=== PATIENT | female | born 1955 | race Caucasian/White ===

== ENCOUNTER 2018-11-15 09:18 | Emergency (ER) | payer BC ==
[2018-11-15] MEDS ORDERED: Diltiazem 50 MG/10 ML SDV IVPUSH ONE (09:48)
[2018-11-15] MEDS ORDERED: Sodium Chloride 0.9% 10 ML Syringe FLUSH PRN (09:49)
--- NOTE | 2018-11-15 09:50 | EDM.PDOC ---
ED HPI GENERAL MEDICAL PROBLEM - General Chief Complaint: Cardiovascular Problem Stated Complaint: HEART ISSUES Time Seen by Provider: 11/15/18 09:47 Source of Information: Reports: Patient, Family, RN, RN Notes Reviewed History Limitations: Reports: No Limitations - History of Present Illness INITIAL COMMENTS - FREE TEXT/NARRATIVE: Patient presents to the ED at [facility] for the evaluation of tachycardia and palpitations. Patient states her symptoms started while she was on the treadmill this AM. Patient denies any chest pain. No SOB or cough. Patient states she feel some heartburn. No N/V/D. Patient denies any focal neurological deficits. No LOC. Patient denies any dizziness or feeling lightheaded. Patient does have a history of AFib with RVR from last spring. Onset: Today, Sudden Onset Date: 11/15/18 - Related Data Allergies Allergy/AdvReac Type Severity Reaction Status Date / Time atorvastatin calcium Allergy Cannot Verified 11/15/18 09:47 [From Lipitor] Remember rosuvastatin calcium Allergy Cannot Verified 11/15/18 09:47 [From Crestor] Remember Sulfa (Sulfonamide Allergy Facial Verified 11/15/18 09:47 Antibiotics) Swelling codeine AdvReac Nausea and Verified 11/15/18 09:47 Vomiting tussenel Allergy Cannot Uncoded 11/15/18 09:47 Remember Home Meds: Home Meds Aspirin [Dino Chewable] 81 mg PO DAILY 12/01/13 [History] Multivitamin [Multivitamins] 1 each PO DAILY 12/01/13 [History] Xpdph-3-Pgwr Ethyl Esters [Lovaza] 2 gm PO DAILY 12/01/13 [History] Omeprazole 1 cap PO BID 12/01/13 [History] buPROPion [Wellbutrin XL] 150 mg PO DAILY 12/01/13 [History] Calcium Carb & Citrate/Vit D3 [Calcium + Vitamin D3 Caplet] 1 each PO DAILY [History] Cranberry Extract/Vit C [Azo Cranberry Softgel] 1 cap PO DAILY 02/07/16 [History ] Fenofibrate Nanocrystallized [Fenofibrate] 145 mg PO DAILY 02/07/16 [History] Hyoscyamine [Levsin] 1 tab PO TID PRN 02/07/16 [History] L.acidoph,Paracasei, B.lactis [Probiotic] 1 cap PO DAILY 02/07/16 [History] Ursodiol 2 tab PO BID 02/07/16 [History] Ascorbate Calcium [Vitamin C] 1 tab PO DAILY 02/12/16 [History] Milk Thistle 1 tab PO DAILY 02/12/16 [History] Turmeric Root Extract [Turmeric] 1 tab PO DAILY 02/12/16 [History] Zinc 1 tab PO DAILY 02/12/16 [History] Past Medical History Cardiovascular History: Reports: High Cholesterol Respiratory History: Reports: None Gastrointestinal History: Reports: Cholelithiasis, Diverticulosis, GERD, Other ( See Below) Other Gastrointestinal History: Epigastric pain Genitourinary History: Reports: None, Renal Calculus EMS DRIVER History: Reports: Other (See Below) Other EMS DRIVER History: Menopause Musculoskeletal History: Reports: Back Pain, Chronic, Osteoarthritis, Other ( See Below) Other Musculoskeletal History: Chronic shoulder bursitis Neurological History: Reports: None Psychiatric History: Reports: Other (See Below) Other Psychiatric History: Adjustment disorder Endocrine/Metabolic History: Reports: Other (See Below) Other Endocrine/Metabolic History: Hypercalcemia Hematologic History: Reports: None Immunologic History: Reports: None Oncologic (Cancer) History: Reports: None Dermatologic History: Reports: Other (See Below) Other Dermatologic History: Acne - Past Surgical History HEENT Surgical History: Reports: Naso-Sinus Surgery, Tonsillectomy Musculoskeletal Surgical History: Reports: Arthroscopic Procedure ED ROS GENERAL - Review of Systems Review Of Systems: See Below Constitutional: Denies: Fever, Chills, Weakness Respiratory: Denies: Shortness of Breath, Cough Cardiovascular: Reports: Palpitations. Denies: Chest Pain GI/Abdominal: Denies: Abdominal Pain, Nausea, Vomiting Skin: Reports: No Symptoms Neurological: Reports: No Symptoms ED EXAM, GENERAL - Physical Exam Exam: See Below Exam Limited By: No Limitations General Appearance: Alert, No Apparent Distress Respiratory/Chest: No Respiratory Distress, Lungs Clear, Normal Breath Sounds Cardiovascular: Normal Peripheral Pulses, No Edema, Tachycardia Peripheral Pulses: 2+: Radial (L), Radial (R) GI/Abdominal: Normal Bowel Sounds, Soft, Non-Tender Neurological: Alert, Oriented Skin Exam: Warm, Dry, Intact, Normal Color Course - Vital Signs Last Recorded V/S: Last Vital Signs Temp 36.7 C 11/15/18 09:18 Pulse 154 H 11/15/18 09:18 Resp 16 11/15/18 09:18 BP 125/68 11/15/18 09:18 Pulse Ox 97 11/15/18 09:18 - Orders/Labs/Meds Orders: Active Orders 24 hr Category Date Time Status EKG 12 Lead [EKG Documentation Completion] [RC] STAT Care 11/15/18 09:48 Active EKG 12 Lead [EKG Documentation Completion] [RC] STAT Care 11/15/18 10:06 Active Sodium Chloride 0.9% [Saline Flush] Med 11/15/18 09:49 Active 10 ml FLUSH ASDIRECTED PRN Peripheral IV Insertion Adult [OM.PC] Routine Oth 11/15/18 09:49 Ordered Medication Orders Sodium Chloride (Saline Flush) 10 ml FLUSH ASDIRECTED PRN PRN Reason: Keep Vein Open Labs: Laboratory Tests 11/15/18 11/15/18 Range/Units 09:45 09:45 WBC 7.5 (4.0-10.0) x10^3/uL RBC 4.82 (4.00-5.50) x10^6/uL Hgb 11.8 L (12.0-16.0) g/dL Hct 38.9 (33.0-47.0) % MCV 80.7 (78.0-93.0) fL MCH 24.5 L (26.0-32.0) pg MCHC 30.3 L (32.0-36.0) g/dL RDW Coeff of Poncho 15.1 H (10.0-15.0) % Plt Count 447 H (130-400) x10^3/uL Neut % (Auto) 55.0 (50.0-80.0) % Lymph % (Auto) 31.5 (25.0-50.0) % [place] % (Auto) 11.4 H (2.0-11.0) % Eos % (Auto) 1.6 (0.0-4.0) % Baso % (Auto) 0.5 (0.2-1.2) % Sodium 143 (136-145) mmol/L Potassium 3.9 (3.5-5.1) mmol/L Chloride 105 (98-107) mmol/L Carbon Dioxide 27 (21-32) mmol/L Anion Gap 14.9 (10-20) mmol/L BUN 17 (7-18) mg/dL Creatinine 0.7 (0.55-1.02) mg/dL Est Cr Clr Drug Dosing 75.94 mL/min Estimated GFR (MDRD) > 60 Glucose 115 H (74-106) mg/dL Calcium 9.4 (8.5-10.1) mg/dL Magnesium 1.7 L (1.8-2.4) mg/dL Creatine Kinase 82 (26-192) U/L Troponin I < 0.017 (<=0.056) ng/mL Meds: Medications Generic Name Dose Route Start Last Admin Trade Name Freq PRN Reason Stop Dose Admin Sodium Chloride 10 ml 11/15/18 09:49 Saline Flush FLUSH ASDIRECTED PRN Keep Vein Open Discontinued Medications Generic Name Dose Route Start Last Admin Trade Name Freq PRN Reason Stop Dose Admin Diltiazem HCl 10 mg 11/15/18 09:48 Cardizem IVPUSH 11/15/18 09:49 ONETIME ONE Pantoprazole Sodium 40 mg 11/15/18 09:57 11/15/18 10:09 Protonix Iv IVPUSH 11/15/18 09:58 40 mg ONETIME ONE Administration Departure - Departure Time of Disposition: 10:34 Disposition: Home, Self-Care 01 Reason for Transfer *Q: Other Condition: Good Clinical Impression: Afib Qualifiers: Atrial fibrillation type: unspecified Qualified Code(s): I48.91 - Unspecified atrial fibrillation Instructions: Atrial Fibrillation Referrals: Shasha Peguero MD [Primary Care Provider] - Forms: ED Department Discharge Additional Instructions: 1. Stay well hydrated and rest 2. EKG looks good after your heart rate slowed down 3. Blood work was normal 4. Recommend follow up appt with Dr. Peguero 5. Rest and relax today from work - Problem List Review Problem List Initiated/Reviewed/Updated: Yes - My Orders Last 24 Hours: My Active Orders 11/15/18 09:48 EKG 12 Lead [EKG Documentation Completion] [RC] STAT 11/15/18 09:49 Sodium Chloride 0.9% [Saline Flush] 10 ml FLUSH ASDIRECTED PRN Peripheral IV Insertion Adult [OM.PC] Routine 11/15/18 10:06 EKG 12 Lead [EKG Documentation Completion] [RC] STAT - Assessment/Plan Last 24 Hours: My Active Orders 11/15/18 09:48 EKG 12 Lead [EKG Documentation Completion] [RC] STAT 11/15/18 09:49 Sodium Chloride 0.9% [Saline Flush] 10 ml FLUSH ASDIRECTED PRN Peripheral IV Insertion Adult [OM.PC] Routine 11/15/18 10:06 EKG 12 Lead [EKG Documentation Completion] [RC] STAT Assessment:: Uncontrolled AFib Plan: Patient converted to NSR in the 90's on her own. Cardiazem was not needed. Patient remained hemodynamically stable. Will discharge home without any medications changes and have patient see her PCP for follow up and recheck.
[2018-11-15] MEDS ORDERED: Pantoprazole 40 MG Vial IVPUSH ONE (09:57)
[2018-11-15 10:22] LABS: ANION GAP 14.9 mmol/L (10-20); CHLORIDE,CL 105 mmol/L (98-107); SODIUM,NA 143 mmol/L (136-145)
[2018-11-15 10:56] VITALS: BP 106/81
== END 2018-11-15 10:49 | disposition home or self-care (01) ==
LOC: VM.ED 09:18
DX: I48.91 Unspecified atrial fibrillation (principal); Z88.2 Allergy status to sulfonamides; Z88.5 Allergy status to narcotic agent; Z79.899 Other long term (current) drug therapy
CPT/HCPCS: 36415; 80048; 82550; 83735; 84484; 85025; 93005; 96374; 99285; C9113

== ENCOUNTER 2019-01-21 22:43 | Emergency (ER) | payer BC ==
[2019-01-21] MEDS ORDERED: Sodium Chloride 0.9% 10 ML Syringe FLUSH PRN (23:04)
[2019-01-21] MEDS: hydrOXYzine HCl 50 MG/ML SDV IM ONE (23:11)
--- NOTE | 2019-01-21 23:12 | EDM.PDOC ---
ED HPI GENERAL MEDICAL PROBLEM - General Chief Complaint: Cardiovascular Problem Stated Complaint: RACING HEART RATE Time Seen by Provider: 01/21/19 22:45 Source of Information: Reports: Patient History Limitations: Reports: No Limitations - History of Present Illness INITIAL COMMENTS - FREE TEXT/NARRATIVE: Patient comes in the emergency department with complaints of heart palpitations. Patient states this started about 3 [place] 4 hours ago. Patient states that she was sitting at home getting ready to go to bed and she felt her heart skip a beat. She has had a history of this she had one episode approximate year and half ago when she had diverticulitis flare it was found that she was in atrial fibrillation. They lasted short period of time and they did not need to correct it with any medication they felt that it was secondary to the diverticulitis. States that her palpitations tonight felt similar to that of a year and a half ago. Patient denies having chest pain, shortness of breath, dizziness, lightheadedness, nausea, or recovered and diaphoretic. She is unable to specify how long she felt heart palpitations. She is also unable to delineate how rapid her heart rate was. She has had a lot of stress in her life her father is actively dying and is on hospice which is been very stressful to the entire family over the course of the weekend. She has not been eating as well or drinking as much water as she normally does. Onset: Sudden Duration: Resolved Prior to Arrival Improves with: Reports: None Worsens with: Reports: None Associated Symptoms: Reports: No Other Symptoms - Related Data Allergies Allergy/AdvReac Type Severity Reaction Status Date / Time atorvastatin calcium Allergy Cannot Verified 01/21/19 22:51 [From Lipitor] Remember rosuvastatin calcium Allergy Cannot Verified 01/21/19 22:51 [From Crestor] Remember Sulfa (Sulfonamide Allergy Facial Verified 01/21/19 22:51 Antibiotics) Swelling codeine AdvReac Nausea and Verified 01/21/19 22:51 Vomiting tussenel Allergy Cannot Uncoded 01/21/19 22:51 Remember Home Meds: Home Meds Multivitamin [Multivitamins] 1 each PO DAILY 12/01/13 [History] Qfvop-1-Uymd Ethyl Esters [Lovaza] 2 gm PO DAILY 12/01/13 [History] Omeprazole 10 cap PO DAILY 12/01/13 [History] buPROPion [Wellbutrin XL] 150 mg PO DAILY 12/01/13 [History] Calcium Carb & Citrate/Vit D3 [Calcium + Vitamin D3 Caplet] 1 each PO DAILY [History] Cranberry Extract/Vit C [Azo Cranberry Softgel] 1 cap PO DAILY 02/07/16 [History ] L.acidoph,Paracasei, B.lactis [Probiotic] 1 cap PO DAILY 02/07/16 [History] Ascorbate Calcium [Vitamin C] 1 tab PO DAILY 02/12/16 [History] Turmeric Root Extract [Turmeric] 1 tab PO DAILY 02/12/16 [History] Spironolactone 100 mg DAILY 11/15/18 [History] Past Medical History Cardiovascular History: Reports: High Cholesterol Respiratory History: Reports: None Gastrointestinal History: Reports: Cholelithiasis, Diverticulosis, GERD, Other ( See Below) Other Gastrointestinal History: Epigastric pain Genitourinary History: Reports: None, Renal Calculus VIDEO PRODUCTION SPECIALIST History: Reports: Other (See Below) Other VIDEO PRODUCTION SPECIALIST History: Menopause Musculoskeletal History: Reports: Back Pain, Chronic, Osteoarthritis, Other ( See Below) Other Musculoskeletal History: Chronic shoulder bursitis Neurological History: Reports: None Psychiatric History: Reports: Other (See Below) Other Psychiatric History: Adjustment disorder Endocrine/Metabolic History: Reports: Other (See Below) Other Endocrine/Metabolic History: Hypercalcemia Hematologic History: Reports: None Immunologic History: Reports: None Oncologic (Cancer) History: Reports: None Dermatologic History: Reports: Other (See Below) Other Dermatologic History: Acne - Past Surgical History HEENT Surgical History: Reports: Naso-Sinus Surgery, Tonsillectomy Musculoskeletal Surgical History: Reports: Arthroscopic Procedure Social & Family History - Tobacco Use Smoking Status *Q: Never Smoker ED ROS GENERAL - Review of Systems Review Of Systems: See Below Constitutional: Reports: No Symptoms HEENT: Reports: No Symptoms Respiratory: Reports: No Symptoms Cardiovascular: Reports: Palpitations. Denies: Chest Pain, Blood Pressure Problem, Claudication, Dyspnea on Exertion, Edema, Lightheadedness, Orthopnea, PND, Syncope Endocrine: Reports: No Symptoms GI/Abdominal: Reports: No Symptoms : Reports: No Symptoms Musculoskeletal: Reports: No Symptoms Skin: Reports: No Symptoms Neurological: Reports: No Symptoms Psychiatric: Reports: No Symptoms Hematologic/Lymphatic: Reports: No Symptoms Immunologic: Reports: No Symptoms ED EXAM, GENERAL - Physical Exam Exam: See Below Exam Limited By: No Limitations General Appearance: Alert, WD/WN, Anxious Respiratory/Chest: No Respiratory Distress, Lungs Clear, Normal Breath Sounds, No Accessory Muscle Use, Chest Non-Tender Cardiovascular: Normal Peripheral Pulses, Regular Rate, Rhythm, No Edema, No JVD , No Murmur, No Rub Extremities: Normal Inspection, Normal Range of Motion, Normal Capillary Refill Neurological: Alert, Oriented, Normal Gait Psychiatric: Normal Affect, Anxious Skin Exam: Warm, Dry, Intact, Normal Color, No Rash EKG INTERPRETATION Rhythm: NSR [place]: Normal QRS: Normal Course - Vital Signs Last Recorded V/S: Last Vital Signs Temp 36.1 C 01/21/19 22:52 Pulse 68 01/21/19 23:51 Resp 15 01/21/19 23:51 BP 96/59 L 01/21/19 23:51 Pulse Ox 96 01/21/19 23:51 - Orders/Labs/Meds Orders: Active Orders 24 hr Category Date Time Status Cardiac Monitoring [RC] . DIRECTED Care 01/21/19 23:03 Active EKG Documentation Completion [RC] STAT Care 01/21/19 23:03 Active Sodium Chloride 0.9% [Normal Saline] 1,000 ml Med 01/21/19 23:15 Active IV ASDIRECTED Sodium Chloride 0.9% [Saline Flush] Med 01/21/19 23:04 Active 10 ml FLUSH ASDIRECTED PRN Peripheral IV Insertion Adult [OM.PC] Stat Oth 01/21/19 23:03 Ordered Medication Orders Sodium Chloride (Normal Saline) 1,000 mls @ 1,000 mls/hr IV ASDIRECTED [facility] Last Admin: 01/21/19 23:30 Dose: 1,000 mls/hr Sodium Chloride (Saline Flush) 10 ml FLUSH ASDIRECTED PRN PRN Reason: Keep Vein Open Labs: Laboratory Tests 01/21/19 01/21/19 Range/Units 23:27 23:27 WBC 7.8 (4.0-10.0) x10^3/uL RBC 4.52 (4.00-5.50) x10^6/uL Hgb 11.4 L (12.0-16.0) g/dL Hct 36.3 (33.0-47.0) % MCV 80.3 (78.0-93.0) fL MCH 25.2 L (26.0-32.0) pg MCHC 31.4 L (32.0-36.0) g/dL RDW Coeff of Poncho 15.8 H (10.0-15.0) % Plt Count 368 D (130-400) x10^3/uL Neut % (Auto) 47.0 L (50.0-80.0) % Lymph % (Auto) 39.4 (25.0-50.0) % [place] % (Auto) 11.7 H (2.0-11.0) % Eos % (Auto) 1.4 (0.0-4.0) % Baso % (Auto) 0.5 (0.2-1.2) % Sodium 140 (136-145) mmol/L Potassium 3.3 L (3.5-5.1) mmol/L Chloride 103 (98-107) mmol/L Carbon Dioxide 23 (21-32) mmol/L Anion Gap 17.3 (10-20) mmol/L BUN 15 (7-18) mg/dL Creatinine 0.6 (0.55-1.02) mg/dL Est Cr Clr Drug Dosing TNP Estimated GFR (MDRD) > 60 Glucose 125 H (74-106) mg/dL Calcium 9.9 (8.5-10.1) mg/dL Corrected Calcium 9.90 (8.5-10.1) mg/dL Total Bilirubin 0.4 (0.2-1.0) mg/dL AST 23 (15-37) U/L ALT 38 (14-59) U/L Alkaline Phosphatase 73 (46-116) U/L Troponin I < 0.017 (<=0.056) ng/mL NT-Pro-B Natriuret Pep 24 (<=125) pg/mL Total Protein 6.9 (6.4-8.2) g/dL Albumin 4.0 (3.4-5.0) g/dL Globulin 2.9 Albumin/Globulin Ratio 1.38 Meds: Medications Generic Name Dose Route Start Last Admin Trade Name Freq PRN Reason Stop Dose Admin Sodium Chloride 1,000 mls @ 1,000 mls/hr 01/21/19 23:15 01/21/19 23:30 Normal Saline IV 1,000 mls/hr ASDIRECTED NORMA Administration Sodium Chloride 10 ml 01/21/19 23:04 Saline Flush FLUSH ASDIRECTED PRN Keep Vein Open Discontinued Medications Generic Name Dose Route Start Last Admin Trade Name Abisai PRN Reason Stop Dose Admin Hydroxyzine HCl 25 mg 01/21/19 23:02 01/21/19 23:11 Vistaril IM 01/21/19 23:03 25 mg ONETIME ONE Administration Departure - Departure Time of Disposition: 12:15 Disposition: Home, Self-Care 01 Condition: Good Clinical Impression: Anxiety, Heart palpitations, Dehydration Instructions: Palpitations, Gaev-ii-Glae, Panic Attack Referrals: Shasha Peguero MD [Primary Care Provider] - Forms: ED Department Discharge Additional Instructions: 1. rest 2. increase your water intake 3. Try and maintain your normal eating patterns 4. Activity and diet as tolerated 5. Can take hydroxyzine HCL 1 tab every 4 hours as needed for racing heart symptoms/palpitation or anxiety 6. Follow up with your PCP or return to the ER if symptoms return 7. Call with any questions or concerns - My Orders Last 24 Hours: My Active Orders 01/21/19 23:03 Cardiac Monitoring [RC] . DIRECTED EKG Documentation Completion [RC] STAT Peripheral IV Insertion Adult [OM.PC] Stat 01/21/19 23:04 Sodium Chloride 0.9% [Saline Flush] 10 ml FLUSH ASDIRECTED PRN 01/21/19 23:15 Sodium Chloride 0.9% [Normal Saline] 1,000 ml IV ASDIRECTED - Assessment/Plan Last 24 Hours: My Active Orders 01/21/19 23:03 Cardiac Monitoring [RC] . DIRECTED EKG Documentation Completion [RC] STAT Peripheral IV Insertion Adult [OM.PC] Stat 01/21/19 23:04 Sodium Chloride 0.9% [Saline Flush] 10 ml FLUSH ASDIRECTED PRN 01/21/19 23:15 Sodium Chloride 0.9% [Normal Saline] 1,000 ml IV ASDIRECTED Assessment:: 1. Heart palpitation 2. anxiety Plan: 1. EKG completed in the ER 2. Hydroxyzine completed in the ER 3. IV and fluids given in the ER 4. Labs completed in ER. 5. Pt responded well to fluids and hydroxyzine and felt she was better enough for discharge. Did offer to keep pt and observe for any further palpitations. She declined stating she felt "much better". 6. Pt will be sent home with 5 tablets of hydroxyzine to help combat the increased anxiety during the grieving time of the impending of her father. 7. Education was provided to the patient regarding activity, diet, and follow up care 8. All questions and concerns answered prior to discharge.
[2019-01-21] MEDS: Sodium Chloride 0.9% 1,000 ML IV SCH (23:30)
[2019-01-21 23:52] VITALS: BP 96/59
[2019-01-22 00:01] LABS: CHLORIDE,CL 103 mmol/L (98-107); SODIUM,NA 140 mmol/L (136-145)
[2019-01-22 00:02] LABS: ANION GAP 17.3 mmol/L (10-20)
[2019-01-22] MEDS: hydrOXYzine HCl 25 MG Tab ONE (00:23)
== END 2019-01-22 00:30 | disposition home or self-care (01) ==
LOC: VM.ED 22:43
DX: F41.9 Anxiety disorder, unspecified (principal); E86.0 Dehydration; K21.9 Gastro-esophageal reflux disease without esophagitis; E78.00 Pure hypercholesterolemia, unspecified; Z79.899 Other long term (current) drug therapy; Z88.5 Allergy status to narcotic agent; Z88.2 Allergy status to sulfonamides; Z88.8 Allergy status to other drugs, medicaments and biological substances
CPT/HCPCS: 36415; 80053; 83880; 84484; 85025; 93005; 96360; 96372; 99285-25; A9270-GY; J3410; J7030

== ENCOUNTER 2019-03-06 22:26 | Emergency (ER) | payer BC ==
[2019-03-06] MEDS ORDERED: Sodium Chloride 0.9% 10 ML Syringe FLUSH PRN (22:57)
[2019-03-06 23:55] LABS: CHLORIDE,CL 97 mmol/L (98-107); SODIUM,NA 136 mmol/L (136-145)
[2019-03-07 00:01] VITALS: BP 112/71
[2019-03-07 00:03] LABS: ANION GAP 20.6 mmol/L (10-20)
--- NOTE | 2019-03-07 01:00 | EDM.PDOC ---
ED HPI GENERAL MEDICAL PROBLEM - General Chief Complaint: Cardiovascular Problem Stated Complaint: AFIB Time Seen by Provider: 03/06/19 22:40 Source of Information: Reports: Patient History Limitations: Reports: No Limitations - Related Data Allergies Allergy/AdvReac Type Severity Reaction Status Date / Time atorvastatin calcium Allergy Cannot Verified 01/21/19 22:51 [From Lipitor] Remember rosuvastatin calcium Allergy Cannot Verified 01/21/19 22:51 [From Crestor] Remember Sulfa (Sulfonamide Allergy Facial Verified 01/21/19 22:51 Antibiotics) Swelling codeine AdvReac Nausea and Verified 01/21/19 22:51 Vomiting tussenel Allergy Cannot Uncoded 01/21/19 22:51 Remember Home Meds: Home Meds Multivitamin [Multivitamins] 1 each PO DAILY 12/01/13 [History] Ajuhz-4-Pvff Ethyl Esters [Lovaza] 2 gm PO DAILY 12/01/13 [History] Omeprazole 10 cap PO DAILY 12/01/13 [History] buPROPion [Wellbutrin XL] 150 mg PO DAILY 12/01/13 [History] Calcium Carb & Citrate/Vit D3 [Calcium + Vitamin D3 Caplet] 1 each PO DAILY [History] Cranberry Extract/Vit C [Azo Cranberry Softgel] 1 cap PO DAILY 02/07/16 [History ] L.acidoph,Paracasei, B.lactis [Probiotic] 1 cap PO DAILY 02/07/16 [History] Ascorbate Calcium [Vitamin C] 1 tab PO DAILY 02/12/16 [History] Turmeric Root Extract [Turmeric] 1 tab PO DAILY 02/12/16 [History] Spironolactone 100 mg DAILY 11/15/18 [History] Past Medical History Cardiovascular History: Reports: Afib, High Cholesterol Respiratory History: Reports: None Gastrointestinal History: Reports: Cholelithiasis, Diverticulosis, GERD, Other ( See Below) Other Gastrointestinal History: Epigastric pain Genitourinary History: Reports: None, Renal Calculus BAT PERSON History: Reports: Other (See Below) Other BAT PERSON History: Menopause Musculoskeletal History: Reports: Back Pain, Chronic, Osteoarthritis, Other ( See Below) Other Musculoskeletal History: Chronic shoulder bursitis Neurological History: Reports: None Psychiatric History: Reports: Other (See Below) Other Psychiatric History: Adjustment disorder Endocrine/Metabolic History: Reports: Other (See Below) Other Endocrine/Metabolic History: Hypercalcemia Hematologic History: Reports: None Immunologic History: Reports: None Oncologic (Cancer) History: Reports: None Dermatologic History: Reports: Other (See Below) Other Dermatologic History: Acne - Past Surgical History HEENT Surgical History: Reports: Naso-Sinus Surgery, Tonsillectomy GI Surgical History: Reports: Small Bowel Musculoskeletal Surgical History: Reports: Arthroscopic Procedure Social & Family History - Family History Family Medical History: Noncontributory - Tobacco Use Smoking Status *Q: Never Smoker Second Hand Smoke Exposure: No - Caffeine Use Caffeine Use: Reports: Coffee - Recreational Drug Use Recreational Drug Use: No ED ROS GENERAL - Review of Systems Review Of Systems: See Below Constitutional: Reports: No Symptoms HEENT: Reports: No Symptoms Respiratory: Reports: No Symptoms Cardiovascular: Reports: Palpitations Endocrine: Reports: No Symptoms GI/Abdominal: Reports: No Symptoms : Reports: No Symptoms Musculoskeletal: Reports: No Symptoms Skin: Reports: No Symptoms Neurological: Reports: No Symptoms Psychiatric: Reports: No Symptoms Hematologic/Lymphatic: Reports: No Symptoms Immunologic: Reports: No Symptoms ED EXAM, GENERAL - Physical Exam Exam: See Below Exam Limited By: No Limitations General Appearance: Alert, WD/WN, No Apparent Distress Eye Exam: Bilateral Eye: EOMI, PERRL Ears: Normal External Exam, Normal Canal, Hearing Grossly Normal, Normal TMs Nose: Normal Inspection, Normal Mucosa, No Blood Throat/Mouth: Normal Inspection, Normal Lips, Normal Teeth, Normal Gums, Normal Oropharynx, Normal Voice, No Airway Compromise Head: Atraumatic, Normocephalic Neck: Normal Inspection, Supple, Non-Tender, Full Range of Motion Respiratory/Chest: No Respiratory Distress, Lungs Clear, Normal Breath Sounds, No Accessory Muscle Use, Chest Non-Tender Cardiovascular: No Edema, No Gallop, No JVD, No Murmur, No Rub, Irregularly Irregular Peripheral Pulses: 1+: Posterior Tibial (L), Posterior Tibial (R), Dorsalis Pedis (L), Dorsalis Pedis (R) GI/Abdominal: Normal Bowel Sounds, Soft, Non-Tender, No Organomegaly, No Distention, No Abnormal Bruit, No Mass Back Exam: Normal Inspection, Full Range of Motion, NT Extremities: Normal Inspection, Normal Range of Motion, Non-Tender, Normal Capillary Refill, No Pedal Edema Neurological: Alert, Oriented, CN II-XII Intact, Normal Cognition, Normal Gait, Normal Reflexes, No Motor/Sensory Deficits Psychiatric: Normal Affect, Normal Mood Skin Exam: Warm, Dry, Intact, Normal Color, No Rash Lymphatic: No Adenopathy Course - Vital Signs Last Recorded V/S: Last Vital Signs Temp 36.2 C 03/06/19 22:45 Pulse 64 03/06/19 22:45 Resp 16 03/06/19 22:45 BP 112/71 03/06/19 22:45 Pulse Ox 96 03/06/19 22:45 - Orders/Labs/Meds Orders: Active Orders 24 hr Category Date Time Status EKG 12 Lead [EKG Documentation Completion] [RC] STAT Care 03/06/19 23:44 Active EKG Documentation Completion [RC] STAT Care 03/06/19 22:57 Ordered Chest 2V [CR] Stat Exams 03/06/19 22:57 Ordered Sodium Chloride 0.9% [Saline Flush] Med 03/06/19 22:57 Ordered 10 ml FLUSH ASDIRECTED PRN Saline Lock Insert [OM.PC] Routine Oth 03/06/19 22:57 Ordered Medication Orders Sodium Chloride (Saline Flush) 10 ml FLUSH ASDIRECTED PRN PRN Reason: Keep Vein Open Labs: Laboratory Tests 03/06/19 03/06/19 03/06/19 Range/Units 23:05 23:05 23:05 WBC 7.2 (4.0-10.0) x10^3/uL RBC 4.73 (4.00-5.50) x10^6/uL Hgb 12.1 (12.0-16.0) g/dL Hct 37.6 (33.0-47.0) % MCV 79.5 (78.0-93.0) fL MCH 25.6 L (26.0-32.0) pg MCHC 32.2 (32.0-36.0) g/dL RDW Coeff of Poncho 14.8 (10.0-15.0) % Plt Count 384 (130-400) x10^3/uL Neut % (Auto) 49.9 L (50.0-80.0) % Lymph % (Auto) 34.8 (25.0-50.0) % [place] % (Auto) 12.8 H (2.0-11.0) % Eos % (Auto) 1.9 (0.0-4.0) % Baso % (Auto) 0.6 (0.2-1.2) % PT 10.1 (10.0-12.8) SEC INR 0.9 L (2.0-3.5) D-Dimer, Quantitative 0.59 H (<=0.58) mg/LFEU Sodium 136 (136-145) mmol/L Potassium 3.6 (3.5-5.1) mmol/L Chloride 97 L (98-107) mmol/L Carbon Dioxide 22 (21-32) mmol/L Anion Gap 20.6 H (10-20) mmol/L BUN 16 (7-18) mg/dL Creatinine 0.7 (0.55-1.02) mg/dL Est Cr Clr Drug Dosing TNP Estimated GFR (MDRD) > 60 Glucose 108 H (74-106) mg/dL Calcium 10.2 H (8.5-10.1) mg/dL Corrected Calcium 10.12 H (8.5-10.1) mg/dL Total Bilirubin 0.5 (0.2-1.0) mg/dL AST 24 (15-37) U/L ALT 35 (14-59) U/L Alkaline Phosphatase 68 (46-116) U/L Troponin I < 0.017 (<=0.056) ng/mL NT-Pro-B Natriuret Pep 15 (<=125) pg/mL Total Protein 7.8 (6.4-8.2) g/dL Albumin 4.1 (3.4-5.0) g/dL Globulin 3.7 Albumin/Globulin Ratio 1.11 TSH, Ultra Sensitive 7.260 H (0.358-3.74) uIU/mL Meds: Medications Generic Name Dose Route Start Last Admin Trade Name Freq PRN Reason Stop Dose Admin Sodium Chloride 10 ml 03/06/19 22:57 Saline Flush FLUSH ASDIRECTED PRN Keep Vein Open Departure - Departure Time of Disposition: 01:07 Disposition: Home, Self-Care 01 Condition: Good Clinical Impression: Atrial fibrillation with RVR Instructions: Atrial Fibrillation, [id number] Referrals: Shasha Peguero MD [Primary Care Provider] - Forms: ED Department Discharge Additional Instructions: Plan 1. Follow up with Dr. Peguero as needed for additional testing. You may need an antiarrhythmic rather than a beta-vera to prevent a-fib 2. You may still take the hydroxyzine as needed for anxiety as needed to see if this will help you get out of a-fib. 3. Follow up with cardiology for your echocardiogram 4. Stay well hydrated 5. Your TSH here was 7.260 which is elevated and may be playing a role in the atrial fibrillation 6. If you continue to struggle with going in and out of a-fib, you may want to present to [place] to see if they will be able to run additional tests 7. If you have any questions or concerns, please do not hesitate to present or call the ER here - Problem List & Annotations (1) Atrial fibrillation with RVR SNOMED Code(s): 959470246076149 Code(s): I48.91 - UNSPECIFIED ATRIAL FIBRILLATION Status: Acute Priority : Low - Problem List Review Problem List Initiated/Reviewed/Updated: Yes - My Orders Last 24 Hours: My Active Orders 03/06/19 22:57 EKG Documentation Completion [RC] STAT Chest 2V [CR] Stat Sodium Chloride 0.9% [Saline Flush] 10 ml FLUSH ASDIRECTED PRN Saline Lock Insert [OM.PC] Routine 03/06/19 23:44 EKG 12 Lead [EKG Documentation Completion] [RC] STAT - Assessment/Plan Last 24 Hours: My Active Orders 03/06/19 22:57 EKG Documentation Completion [RC] STAT Chest 2V [CR] Stat Sodium Chloride 0.9% [Saline Flush] 10 ml FLUSH ASDIRECTED PRN Saline Lock Insert [OM.PC] Routine 03/06/19 23:44 EKG 12 Lead [EKG Documentation Completion] [RC] STAT Assessment:: A-fib with RVR Plan: Plan 1. Follow up with Dr. Peguero as needed for additional testing. You may need an antiarrhythmic rather than a beta-vera to prevent a-fib 2. You may still take the hydroxyzine as needed for anxiety as needed to see if this will help you get out of a-fib. 3. Follow up with cardiology for your echocardiogram 4. Stay well hydrated 5. Your TSH here was 7.260 which is elevated and may be playing a role in the atrial fibrillation 6. If you continue to struggle with going in and out of a-fib, you may want to present to [place] to see if they will be able to run additional tests 7. If you have any questions or concerns, please do not hesitate to present or call the ER here
--- NOTE | 2019-03-07 08:24 | CR ---
[id number] RAD/RAD Chest PA And Lateral EXAM: RAD Chest PA And Lateral INDICATION: SHORTNESS OF BREATH. COMPARISON: None. DISCUSSION: Cardiomediastinal silhouette is normal in size and contour. Rounded opacity projects over the cardiac silhouette, suggesting small hiatus hernia. No infiltrate, effusion, pneumothorax, or edema. IMPRESSION: No acute cardiopulmonary findings. Possible small hiatus hernia. Rashaad Sanderson MD 03/07/19 0822 Thank you for allowing us to participate in the care of your patient.
== END 2019-03-07 01:07 | disposition home or self-care (01) ==
LOC: VM.ED 22:26
DX: I48.91 Unspecified atrial fibrillation (principal); Z88.8 Allergy status to other drugs, medicaments and biological substances; Z88.5 Allergy status to narcotic agent; Z88.2 Allergy status to sulfonamides
CPT/HCPCS: 71046; 80053; 83880; 84443; 84484; 85025; 85379; 85610; 93005; 99285-25

== ENCOUNTER 2019-10-26 08:00 | Emergency (ER) | payer BC ==
[2019-10-26] MEDS ORDERED: Metoprolol Tartrate 25 MG Tab PO ONE (08:46)
[2019-10-26 08:56] LABS: CHLORIDE,CL 103 mmol/L (98-107); SODIUM,NA 141 mmol/L (136-145)
[2019-10-26 08:57] LABS: ANION GAP 15.5 mmol/L (10-20)
[2019-10-26 09:01] VITALS: BP 111/73
--- NOTE | 2019-10-26 09:19 | EDM.PDOC ---
ED HPI GENERAL MEDICAL PROBLEM - General Chief Complaint: Cardiovascular Problem Stated Complaint: ER VISIT Time Seen by Provider: 10/26/19 08:00 Source of Information: Reports: Patient History Limitations: Reports: No Limitations - History of Present Illness INITIAL COMMENTS - FREE TEXT/NARRATIVE: Pt. presents to ER with complaints of palpitations this AM. Pt. states that she has a history of a-fib and is currently on xaralto. She states that she has had intermittent palpitation but is not currently on any antiarrhythmic agent due to the intermittent nature of the symptoms. She states that she had an episode of palpitations yesterday but states that it resolved spontaneously. She states that it again happened today, and on arrival to ER, she could still feel her heart racing. Denies any chest pain. No shortness of breath. No nausea, vomiting, or diarrhea. No recent illness. No arm, jaw, neck or back pain. Pt. is followed by [facility]. She is scheduled to undergo an electrophysiology procedure (appears to be an EP study/pulmonary vein isolation ) on 11/16/19. Onset: Today Onset Date: 10/26/19 - Related Data Allergies Allergy/AdvReac Type Severity Reaction Status Date / Time atorvastatin calcium Allergy Cannot Verified 10/26/19 08:45 [From Lipitor] Remember rosuvastatin calcium Allergy Cannot Verified 10/26/19 08:45 [From Crestor] Remember Sulfa (Sulfonamide Allergy Facial Verified 10/26/19 08:45 Antibiotics) Swelling codeine AdvReac Nausea and Verified 10/26/19 08:45 Vomiting tussenel Allergy Cannot Uncoded 10/26/19 08:45 Remember Home Meds: Home Meds Multivitamin [Multivitamins] 1 each PO DAILY 12/01/13 [History] Iphaz-5-Ytua Ethyl Esters [Lovaza] 2 gm PO DAILY 12/01/13 [History] Omeprazole 10 cap PO DAILY 12/01/13 [History] buPROPion [Wellbutrin XL] 150 mg PO DAILY 12/01/13 [History] Calcium Carb & Citrate/Vit D3 [Calcium + Vitamin D3 Caplet] 1 each PO DAILY [History] Cranberry Extract/Vit C [Azo Cranberry Softgel] 1 cap PO DAILY 02/07/16 [History ] L.acidoph,Paracasei, B.lactis [Probiotic] 1 cap PO DAILY 02/07/16 [History] Ascorbate Calcium [Vitamin C] 1 tab PO DAILY 02/12/16 [History] Turmeric Root Extract [Turmeric] 1 tab PO DAILY 02/12/16 [History] Spironolactone 100 mg PO DAILY 11/15/18 [History] Rivaroxaban [Xarelto] 10 mg DAILY 10/26/19 [History] Past Medical History Cardiovascular History: Reports: Afib, High Cholesterol Respiratory History: Reports: None Gastrointestinal History: Reports: Cholelithiasis, Diverticulosis, GERD, Other ( See Below) Other Gastrointestinal History: Epigastric pain Genitourinary History: Reports: None, Renal Calculus BI SPECIALIST History: Reports: Other (See Below) Other BI SPECIALIST History: Menopause Musculoskeletal History: Reports: Back Pain, Chronic, Osteoarthritis, Other ( See Below) Other Musculoskeletal History: Chronic shoulder bursitis Neurological History: Reports: None Psychiatric History: Reports: Other (See Below) Other Psychiatric History: Adjustment disorder Endocrine/Metabolic History: Reports: Other (See Below) Other Endocrine/Metabolic History: Hypercalcemia Hematologic History: Reports: None Immunologic History: Reports: None Oncologic (Cancer) History: Reports: None Dermatologic History: Reports: Other (See Below) Other Dermatologic History: Acne - Past Surgical History HEENT Surgical History: Reports: Naso-Sinus Surgery, Tonsillectomy GI Surgical History: Reports: Small Bowel Musculoskeletal Surgical History: Reports: Arthroscopic Procedure Social & Family History - Family History Family Medical History: Noncontributory - Caffeine Use Caffeine Use: Reports: Coffee ED ROS GENERAL - Review of Systems Review Of Systems: See Below Constitutional: Reports: No Symptoms HEENT: Reports: No Symptoms Respiratory: Reports: No Symptoms Cardiovascular: Reports: Palpitations Endocrine: Reports: No Symptoms GI/Abdominal: Reports: No Symptoms : Reports: No Symptoms Musculoskeletal: Reports: No Symptoms Skin: Reports: No Symptoms Neurological: Reports: No Symptoms Psychiatric: Reports: No Symptoms Hematologic/Lymphatic: Reports: No Symptoms Immunologic: Reports: No Symptoms ED EXAM, GENERAL - Physical Exam Exam: See Below Exam Limited By: No Limitations General Appearance: Alert, WD/WN, No Apparent Distress Head: Atraumatic, Normocephalic Neck: Normal Inspection, Supple, Non-Tender Respiratory/Chest: No Respiratory Distress, Lungs Clear, Normal Breath Sounds, No Accessory Muscle Use, Chest Non-Tender Cardiovascular: Normal Peripheral Pulses, Regular Rate, Rhythm, No Edema, No JVD , No Murmur, No Rub GI/Abdominal: Normal Bowel Sounds, Soft, Non-Tender, No Distention, No Mass (Female) Exam: Deferred Rectal (Female) Exam: Deferred Back Exam: Normal Inspection, Full Range of Motion Extremities: Normal Inspection, Normal Range of Motion, Non-Tender, No Pedal Edema, Normal Capillary Refill Neurological: Alert, Oriented, CN II-XII Intact, Normal Cognition, Normal Gait, No Motor/Sensory Deficits Psychiatric: Normal Affect, Normal Mood Skin Exam: Warm, Dry, Intact, Normal Color, No Rash Course - Vital Signs Last Recorded V/S: Last Vital Signs Temp 36.6 C 10/26/19 08:00 Pulse 81 10/26/19 08:53 Resp 16 10/26/19 08:00 BP 111/73 10/26/19 08:53 Pulse Ox 100 10/26/19 08:00 - Orders/Labs/Meds Orders: Active Orders 24 hr Category Date Time Status EKG Documentation Completion [RC] STAT Care 10/26/19 08:15 Active Labs: Laboratory Tests 10/26/19 10/26/19 10/26/19 Range/Units 08:23 08:23 08:23 WBC 5.8 (4.0-10.0) x10^3/uL RBC 4.64 (4.00-5.50) x10^6/uL Hgb 12.7 (12.0-16.0) g/dL Hct 39.3 (33.0-47.0) % MCV 84.7 D (78.0-93.0) fL MCH 27.4 (26.0-32.0) pg MCHC 32.3 (32.0-36.0) g/dL RDW Coeff of Poncho 13.8 (10.0-15.0) % Plt Count 312 (130-400) x10^3/uL Neut % (Auto) 50.8 (50.0-80.0) % Lymph % (Auto) 35.8 (25.0-50.0) % [place] % (Auto) 10.8 (2.0-11.0) % Eos % (Auto) 2.1 (0.0-4.0) % Baso % (Auto) 0.5 (0.2-1.2) % PT 10.7 (10.0-12.8) SEC INR 0.9 L (2.0-3.5) Sodium 141 (136-145) mmol/L Potassium 3.5 (3.5-5.1) mmol/L Chloride 103 (98-107) mmol/L Carbon Dioxide 26 (21-32) mmol/L Anion Gap 15.5 (10-20) mmol/L BUN 17 (7-18) mg/dL Creatinine 0.7 (0.55-1.02) mg/dL Est Cr Clr Drug Dosing 78.01 mL/min Estimated GFR (MDRD) > 60 Glucose 94 (74-106) mg/dL Calcium 9.6 (8.5-10.1) mg/dL Corrected Calcium 9.60 (8.5-10.1) mg/dL Total Bilirubin 0.4 (0.2-1.0) mg/dL AST 25 (15-37) U/L ALT 34 (14-59) U/L Alkaline Phosphatase 56 (46-116) U/L Troponin I < 0.017 (<=0.056) ng/mL Total Protein 7.1 (6.4-8.2) g/dL Albumin 4.0 (3.4-5.0) g/dL Globulin 3.1 Albumin/Globulin Ratio 1.29 Meds: Medications Discontinued Medications Generic Name Dose Route Start Last Admin Trade Name Freq PRN Reason Stop Dose Admin Metoprolol Tartrate 25 mg 10/26/19 08:46 10/26/19 08:53 Lopressor PO 10/26/19 08:47 25 mg ONETIME ONE Administration - Re-Assessments/Exams Free Text/Narrative Re-Assessment/Exam: Pt. was initially in atrial fib at approx. 140 on arrival to ED and converted to sinus rhythm at 70-[address] or T wave abnormality. Pt. was given metoprolol tartrate 25mg PO in ER. She was observed and had no recurrence of her a-fib or other dysrhythmia. Departure - Departure Time of Disposition: 09:05 Disposition: Home, Self-Care 01 Clinical Impression: Paroxysmal atrial fibrillation with rapid ventricular response Instructions: Metoprolol tablets, Atrial Fibrillation, [id number] Referrals: Shasha Peguero MD [Primary Care Provider] - Forms: ED Department Discharge Additional Instructions: Home to rest. Metoprolol tartrate 1 tab twice daily. Follow-up with Dr. Mendieta as needed. Return to ER if you have racing heart, chest pain, or shortness of breath. Sepsis Event Note - Evaluation Sepsis Screening Result: No Definite Risk - Focused Exam Vital Signs: Vital Signs Temp Pulse Pulse Resp BP BP Pulse Ox 10/26/19 08:53 81 111/73 10/26/19 08:00 36.6 C 132 H 16 141/81 H 100 Date Exam was Performed: 10/26/19 Time Exam was Performed: 09:09 - My Orders Last 24 Hours: My Active Orders 10/26/19 08:15 EKG Documentation Completion [RC] STAT - Assessment/Plan Last 24 Hours: My Active Orders 10/26/19 08:15 EKG Documentation Completion [RC] STAT Plan: Home to rest. Metoprolol tartrate 1 tab twice daily. Follow-up with Dr. Mendieta as needed. Return to ER if you have racing heart, chest pain, or shortness of breath.
[2019-10-26 09:20] VITALS: PULSE 86
== END 2019-10-26 09:04 | disposition home or self-care (01) ==
LOC: VM.ED 08:00
DX: I48.0 Paroxysmal atrial fibrillation (principal); Z88.8 Allergy status to other drugs, medicaments and biological substances; Z88.2 Allergy status to sulfonamides; Z88.5 Allergy status to narcotic agent; Z79.899 Other long term (current) drug therapy; Z98.890 Other specified postprocedural states
CPT/HCPCS: 36415; 80053; 84484; 85025; 85610; 93005; 99285; A9270

== ENCOUNTER 2020-04-06 03:35 | Emergency (ER) | payer BC ==
[2020-04-06] MEDS ORDERED: GI Cocktail Oral Solution 30 ML PO ONE (03:45)
--- NOTE | 2020-04-06 04:06 | EDM.PDOC ---
ED HPI GENERAL MEDICAL PROBLEM - General Chief Complaint: Abdominal Pain Stated Complaint: abdominal pain Time Seen by Provider: 04/06/20 04:00 Source of Information: Reports: Patient - History of Present Illness INITIAL COMMENTS - FREE TEXT/NARRATIVE: Eliza is a 64 y/o female who comes to the ER with complaints of abdominal pain that started last night about 6 pm. She reports eating supper about 630pm, but the pain started before eating. She has not vomited, but just feels very "bloated" and she rates the pain 8/10. She could not sleep any longer and had to come in about 0330. She reports having a hiatal hernia repair about 6 weeks ago, and she took a hydrocodone/apap for the pain that she had left from her post-op pain meds, but it has done nothing for the pain. Had a normal, but small BM yesterday. Abdominal Pain Score (Numeric/FACES): 8 - Related Data Allergies Allergy/AdvReac Type Severity Reaction Status Date / Time atorvastatin calcium Allergy Cannot Verified 04/06/20 03:36 [From Lipitor] Remember rosuvastatin calcium Allergy Cannot Verified 04/06/20 03:36 [From Crestor] Remember Sulfa (Sulfonamide Allergy Facial Verified 04/06/20 03:36 Antibiotics) Swelling codeine AdvReac Nausea and Verified 04/06/20 03:36 Vomiting tussenel Allergy Cannot Uncoded 04/06/20 03:36 Remember Home Meds: Home Meds buPROPion [Wellbutrin XL] 150 mg PO DAILY 12/01/13 [History] Calcium Carb & Citrate/Vit D3 [Calcium + Vitamin D3 Caplet] 1 each PO DAILY [History] Cranberry Fruit Extract/Vit C [Azo Cranberry Softgel] 1 cap PO DAILY 02/07/16 [ History] Ascorbate Calcium [Vitamin C] 1 tab PO DAILY 02/12/16 [History] Spironolactone 100 mg PO DAILY 11/15/18 [History] Acetaminophen [Tylenol] 650 mg PO Q4H PRN 04/06/20 [History] Cyanocobalamin (Vitamin B-12) [Vitamin B-12] 1,000 mcg PO DAILY 04/06/20 [ History] Fenofibrate Nanocrystallized [Fenofibrate] 1 tab PO BEDTIME 04/06/20 [History] oxyCODONE HCl/Acetaminophen [Endocet 5-325 Tablet] 1 each PO ASDIRECTED PRN [History] Past Medical History Cardiovascular History: Reports: Afib, High Cholesterol, Other (See Below) Other Cardiovascular History: ablation in November Respiratory History: Reports: None Gastrointestinal History: Reports: Cholelithiasis, Diverticulosis, GERD, Hiatal Hernia, Other (See Below) Other Gastrointestinal History: Epigastric pain Genitourinary History: Reports: None, Renal Calculus MILIEU COORDINATOR History: Reports: Other (See Below) Other MILIEU COORDINATOR History: Menopause Musculoskeletal History: Reports: Back Pain, Chronic, Osteoarthritis, Other ( See Below) Other Musculoskeletal History: Chronic shoulder bursitis Neurological History: Reports: None Psychiatric History: Reports: Other (See Below) Other Psychiatric History: Adjustment disorder Endocrine/Metabolic History: Reports: Other (See Below) Other Endocrine/Metabolic History: Hypercalcemia Hematologic History: Reports: None Immunologic History: Reports: None Oncologic (Cancer) History: Reports: None Dermatologic History: Reports: Other (See Below) Other Dermatologic History: Acne - Past Surgical History HEENT Surgical History: Reports: Naso-Sinus Surgery, Tonsillectomy Cardiovascular Surgical History: Reports: Cardiac Ablation GI Surgical History: Reports: Cholecystectomy, Small Bowel, Other (See Below) ( Hiatal Hernia Repair) Musculoskeletal Surgical History: Reports: Arthroscopic Procedure Social & Family History - Family History Family Medical History: Noncontributory - Tobacco Use Smoking Status *Q: Never Smoker - Caffeine Use Caffeine Use: Reports: Coffee Review of Systems - Review of Systems Review Of Systems: See Below Constitutional: Reports: No Symptoms Eyes: Reports: No Symptoms Ears: Reports: No Symptoms Nose: Reports: No Symptoms Mouth/Throat: Reports: No Symptoms Respiratory: Reports: No Symptoms Cardiovascular: Reports: No Symptoms GI/Abdominal: Reports: Abdominal Pain, Decreased Appetite, Other (Bloating) Genitourinary: Reports: No Symptoms Musculoskeletal: Reports: No Symptoms Skin: Reports: No Symptoms Neurological: Reports: No Symptoms Psychiatric: Reports: No Symptoms ED EXAM, GENERAL - Physical Exam Exam: See Below Exam Limited By: No Limitations General Appearance: Alert, WD/WN, No Apparent Distress, Thin (Elderly female, appears to not feel well.) Ears: Normal External Exam, Normal Canal, Hearing Grossly Normal Nose: Normal Inspection, Normal Mucosa, No Blood Throat/Mouth: Normal Inspection, Normal Lips, Normal Teeth, Normal Voice, No Airway Compromise Head: Atraumatic, Normocephalic Neck: Supple Respiratory/Chest: No Respiratory Distress, Lungs Clear, Normal Breath Sounds, Chest Non-Tender Cardiovascular: Regular Rate, Rhythm, No Edema GI/Abdominal: Normal Bowel Sounds, Soft, No Mass, Tender (Diffusely). No: Rebound (Female) Exam: Deferred Rectal (Female) Exam: Deferred Back Exam: No: CVA Tenderness (L), CVA Tenderness (R) Extremities: Normal Inspection, No Pedal Edema, Normal Capillary Refill Neurological: Alert, Oriented, CN II-XII Intact, Normal Cognition, Normal Gait Psychiatric: Normal Affect, Normal Mood Skin Exam: Warm, Dry, Intact, Normal Color, No Rash Lymphatic: No Adenopathy Course - Vital Signs Text/Narrative:: The patient was seen by the REHAB TRAINER She was initially given a GI cocktail. After about 25 minutes that patent still rated her pain 8/10. Labs and CT Abd/ Pelvis W ordered. Fentanyl 50mcg IVP and Zofran 4mg IVP given. 0500 Good relief of pain and nausea. 0630 CT report called to REHAB TRAINER, note small bowel obstruction and right adrenal adenoma. 0640 [facility] contacted and Dr Do accepted patient for transfer. Patient to go POV to [place] with her . Fentanyl 50mcg IVP repeated for pain. Patient was given instruction to transfer to [place] and left the facility with her via POV in stable condition. Last Recorded V/S: Last Vital Signs Temp 36.4 C 04/06/20 06:28 Pulse 83 04/06/20 06:28 Resp 16 04/06/20 06:28 BP 105/50 L 04/06/20 06:28 Pulse Ox 98 04/06/20 06:28 - Orders/Labs/Meds Orders: Active Orders 24 hr Category Date Time Status Abdomen Pelvis w Cont [CT] Stat Exams 04/06/20 04:08 Taken UA W/TONY RFLX IF INDICATED [URIN] Stat Lab 04/06/20 04:07 Ordered Sodium Chloride 0.9% [Saline Flush] Med 04/06/20 04:07 Active 10 ml FLUSH ASDIRECTED PRN Saline Lock Insert [OM.PC] Stat Oth 04/06/20 04:07 Ordered Medication Orders Sodium Chloride (Saline Flush) 10 ml FLUSH ASDIRECTED PRN PRN Reason: Keep Vein Open Last Admin: 04/06/20 04:24 Dose: 10 ml Labs: Laboratory Tests 04/06/20 04/06/20 Range/Units 04:17 04:17 WBC 11.6 H (4.0-10.0) x10^3/uL RBC 5.01 (4.00-5.50) x10^6/uL Hgb 14.1 (12.0-16.0) g/dL Hct 42.2 (33.0-47.0) % MCV 84.2 (78.0-93.0) fL MCH 28.1 (26.0-32.0) pg MCHC 33.4 (32.0-36.0) g/dL RDW Coeff of [place] 16.3 H (10.0-15.0) % Plt Count 319 (130-400) x10^3/uL Neut % (Auto) 84.6 H (50.0-80.0) % Lymph % (Auto) 9.6 L (25.0-50.0) % [place] % (Auto) 5.5 (2.0-11.0) % Eos % (Auto) 0.1 (0.0-4.0) % Baso % (Auto) 0.2 (0.2-1.2) % Sodium 138 (136-145) mmol/L Potassium 4.0 (3.5-5.1) mmol/L Chloride 100 (98-107) mmol/L Carbon Dioxide 28 (21-32) mmol/L Anion Gap 14.0 (10-20) mmol/L BUN 20 H (7-18) mg/dL Creatinine 0.7 (0.55-1.02) mg/dL Est Cr Clr Drug Dosing TNP Estimated GFR (MDRD) > 60 Glucose 154 H (74-106) mg/dL Calcium 10.3 H (8.5-10.1) mg/dL Corrected Calcium 9.90 (8.5-10.1) mg/dL Total Bilirubin 1.4 H (0.2-1.0) mg/dL AST 37 (15-37) U/L ALT 94 H (14-59) U/L Alkaline Phosphatase 171 H (46-116) U/L Total Protein 7.7 (6.4-8.2) g/dL Albumin 4.5 (3.4-5.0) g/dL Globulin 3.2 Albumin/Globulin Ratio 1.41 Amylase 34 (25-115) U/L Lipase 110 (73-393) U/L Meds: Medications Generic Name Dose Route Start Last Admin Trade Name Freq PRN Reason Stop Dose Admin Sodium Chloride 10 ml 04/06/20 04:07 04/06/20 04:24 Saline Flush FLUSH 10 ml ASDIRECTED PRN Administration Keep Vein Open Discontinued Medications Generic Name Dose Route Start Last Admin Trade Name Freq PRN Reason Stop Dose Admin Al Hydroxide/Mg Hydroxide 30 ml 04/06/20 03:45 04/06/20 03:49 Gi Cocktail PO 04/06/20 03:46 30 ml ONETIME ONE Administration Fentanyl 50 mcg 04/06/20 04:10 04/06/20 04:20 Sublimaze IVPUSH 04/06/20 04:11 50 mcg ONETIME ONE Administration Iopamidol 100 ml 04/06/20 05:17 04/06/20 05:28 Isovue-300 (61%) IVPUSH 04/06/20 05:18 85 ml ONETIME ONE Administration Ondansetron HCl 4 mg 04/06/20 04:10 04/06/20 04:19 Zofran IVPUSH 04/06/20 04:11 4 mg ONETIME ONE Administration - Radiology Interpretation Free Text/Narrative:: CT Abd/Pelvic W=small bowel obstruction, right adrenal nodule 2.5cm x 1.4cm ( see final report) Departure - Departure Time of Disposition: 06:51 Disposition: Refer to Observation Condition: Good Clinical Impression: Small bowel obstruction, Adrenal nodule - Discharge Information *PRESCRIPTION DRUG MONITORING PROGRAM REVIEWED*: Not Applicable *COPY OF PRESCRIPTION DRUG MONITORING REPORT IN PATIENT CAITLYN: Not Applicable Referrals: PCP,Unobtain [Primary Care Provider] - Forms: ED Department Discharge, Interfacility Transfer EMTALA Additional Instructions: -Transfer to [facility] via POV -Dr Do accepting physician Sepsis Event Note - Evaluation Sepsis Screening Result: No Definite Risk - Focused Exam Vital Signs: Vital Signs Temp Pulse Resp BP Pulse Ox 04/06/20 06:28 36.4 C 83 16 105/50 L 98 04/06/20 03:37 35.7 C L 62 18 107/46 L 100 Date Exam was Performed: 04/06/20 Time Exam was Performed: 06:45 - My Orders Last 24 Hours: My Active Orders 04/06/20 04:07 UA W/TONY RFLX IF INDICATED [URIN] Stat Sodium Chloride 0.9% [Saline Flush] 10 ml FLUSH ASDIRECTED PRN Saline Lock Insert [OM.PC] Stat 04/06/20 04:08 Abdomen Pelvis w Cont [CT] Stat - Assessment/Plan Last 24 Hours: My Active Orders 04/06/20 04:07 UA W/TONY RFLX IF INDICATED [URIN] Stat Sodium Chloride 0.9% [Saline Flush] 10 ml FLUSH ASDIRECTED PRN Saline Lock Insert [OM.PC] Stat 04/06/20 04:08 Abdomen Pelvis w Cont [CT] Stat
[2020-04-06] MEDS ORDERED: Sodium Chloride 0.9% 10 ML Syringe FLUSH PRN (04:07)
[2020-04-06] MEDS ORDERED: Ondansetron 4 MG/2 ML SDV IVPUSH ONE (04:10)
[2020-04-06] MEDS ORDERED: fentaNYL 100 MCG/2 ML SDV IVPUSH ONE ×2 (04:10→06:57)
[2020-04-06 04:55] LABS: CHLORIDE,CL 100 mmol/L (98-107); SODIUM,NA 138 mmol/L (136-145)
[2020-04-06] MEDS ORDERED: Iopamidol 612 MG/ML 100 ML Bottle IVPUSH ONE (05:17)
[2020-04-06 06:28] VITALS: BP 105/50; PULSE 83
--- NOTE | 2020-04-06 10:16 | CT ---
[id number] CT/CT Abdomen Pelvis W IV EXAM: CT Abdomen Pelvis W IV CLINICAL DATA: ABDOMINAL PAIN COMPARISON STUDY: None. FINDINGS: Moderate hiatal hernia. Postsurgical changes of the proximal stomach with apparent fundoplication. Trace right pleural effusion. Generalized hypodensity liver consistent with hepatic steatosis. The gallbladder is surgically absent. There is pneumobilia likely related to prior procedure. Noncalcified hypodense right adrenal nodule measuring up to 2.5 cm. The left adrenal gland, pancreas and kidneys are unremarkable. The spleen is unremarkable. There are numerous fluid distended loops of small bowel with a transition point in the mid lower abdomen where there is swirling of the vessels concerning for internal hernia. The loops measure up to 3.5 cm. No pneumatosis. No free air. Small amount of free fluid. No fluid collection. Postsurgical changes involving the sigmoid colon. Scattered changes of spondylosis the spine. No fracture or osseous lesion. IMPRESSION: 1. Small bowel obstruction with transition point in the mid lower abdomen. There are multiple swirling vessels in the region of the transition point concerning for internal hernia. There is a small amount of free fluid within the pelvis. No free air or pneumatosis. Kole Fernandez DO 04/06/20 1015 Thank you for allowing us to participate in the care of your patient.
== END 2020-04-06 07:13 | disposition other institution (70) ==
LOC: VM.ED 03:35
DX: K56.609 Unspecified intestinal obstruction, unspecified as to partial versus complete obstruction (principal); E27.8 Other specified disorders of adrenal gland; I48.91 Unspecified atrial fibrillation; E78.00 Pure hypercholesterolemia, unspecified; Z88.8 Allergy status to other drugs, medicaments and biological substances; Z88.2 Allergy status to sulfonamides; Z88.5 Allergy status to narcotic agent; Z79.899 Other long term (current) drug therapy
CPT/HCPCS: 74177; 80053; 82150; 83690; 85025; 96374; 96375; 96376; 99285; A9270; J2405; J3010; Q9967

== ENCOUNTER 2021-10-19 19:33 | Emergency (ER) | payer BC ==
[2021-10-19] MEDS: Take Home: Ondansetron 4 MG Tab.DIS, 2 Tab Pack PO ONE (19:54)
[2021-10-19] MEDS: Promethazine 25 MG/ML SDV IM ONE (19:54)
--- NOTE | 2021-10-19 19:54 | EDM.PDOC ---
ED HPI GENERAL MEDICAL PROBLEM - General Chief Complaint: Gastrointestinal Problem Stated Complaint: DRY HEAVES Time Seen by Provider: 10/19/21 19:35 Source of Information: Reports: Patient, Family History Limitations: Reports: No Limitations - History of Present Illness INITIAL COMMENTS - FREE TEXT/NARRATIVE: Patient presents the ER today with chief complaint of nausea dry heaves and cough. She states all day yesterday she had a dry cough and she was not able to sleep secondary to it she also had some mild nausea and vomited x1. She says today the cough is a little bit better but the nausea has continued she vomited once earlier this a.m. and has been dry heaving all day. She has kept down a little bit of water and some toast but wanted to come to the ER and get checked out to make sure she is not dehydrated. She states overall she feels okay. She states her had the same signs and symptoms about 24 hours ago. She has no other complaints she denies any fever chills or myalgias no diarrhea no sick contact exposures and she actually performed a [id number] rapid Covid test which was negative and her had a negative test as well. Duration: Day(s): Improves with: Reports: None Worsens with: Reports: None Associated Symptoms: Reports: Cough, Loss of Appetite, Nausea/Vomiting. Denies: cough w sputum, Fever/Chills, Rash, Shortness of Breath, Syncope, Weakness - Related Data Allergies Allergy/AdvReac Type Severity Reaction Status Date / Time atorvastatin calcium Allergy Cannot Verified 04/06/20 03:36 [From Lipitor] Remember rosuvastatin calcium Allergy Cannot Verified 04/06/20 03:36 [From Crestor] Remember Sulfa (Sulfonamide Allergy Facial Verified 04/06/20 03:36 Antibiotics) Swelling codeine AdvReac Nausea and Verified 04/06/20 03:36 Vomiting tussenel Allergy Cannot Uncoded 04/06/20 03:36 Remember Home Meds: Home Meds buPROPion [Wellbutrin XL] 150 mg PO DAILY 12/01/13 [History] Calcium Carb & Citrate/Vit D3 [Calcium + Vitamin D3 Caplet] 1 each PO DAILY 10/23/14 [History] Cranberry Fruit Extract/Vit C [Azo Cranberry Softgel] 1 cap PO DAILY 02/07/16 [History] Ascorbate Calcium [Vitamin C] 1 tab PO DAILY 02/12/16 [History] Spironolactone 100 mg PO DAILY 11/15/18 [History] Acetaminophen [Tylenol] 650 mg PO Q4H PRN 04/06/20 [History] Cyanocobalamin (Vitamin B-12) [Vitamin B-12] 1,000 mcg PO DAILY 04/06/20 [History] Fenofibrate Nanocrystallized [Fenofibrate] 1 tab PO BEDTIME 04/06/20 [History] oxyCODONE HCl/Acetaminophen [Endocet 5-325 Tablet] 1 each PO ASDIRECTED PRN 04/06/20 [History] Past Medical History Cardiovascular History: Reports: Afib, High Cholesterol, Other (See Below) Other Cardiovascular History: ablation in November Respiratory History: Reports: None Gastrointestinal History: Reports: Cholelithiasis, Diverticulosis, GERD, Hiatal Hernia, Other (See Below) Other Gastrointestinal History: Epigastric pain Genitourinary History: Reports: None, Renal Calculus SIDE SAWYER History: Reports: Other (See Below) Other SIDE SAWYER History: Menopause Musculoskeletal History: Reports: Back Pain, Chronic, Osteoarthritis, Other (See Below) Other Musculoskeletal History: Chronic shoulder bursitis Neurological History: Reports: None Psychiatric History: Reports: Other (See Below) Other Psychiatric History: Adjustment disorder Endocrine/Metabolic History: Reports: Other (See Below) Other Endocrine/Metabolic History: Hypercalcemia Hematologic History: Reports: None Immunologic History: Reports: None Oncologic (Cancer) History: Reports: None Dermatologic History: Reports: Other (See Below) Other Dermatologic History: Acne - Past Surgical History HEENT Surgical History: Reports: Naso-Sinus Surgery, Tonsillectomy Cardiovascular Surgical History: Reports: Cardiac Ablation GI Surgical History: Reports: Cholecystectomy, Small Bowel, Other (See Below) (Hiatal Hernia Repair) Musculoskeletal Surgical History: Reports: Arthroscopic Procedure Social & Family History - Family History Family Medical History: No Pertinent Family History - Caffeine Use Caffeine Use: Reports: Coffee ED ROS GENERAL - Review of Systems Review Of Systems: See Below Constitutional: Reports: No Symptoms HEENT: Reports: No Symptoms Respiratory: Reports: Cough Cardiovascular: Reports: No Symptoms Endocrine: Reports: No Symptoms GI/Abdominal: Reports: Decreased Appetite, Nausea, Vomiting. Denies: Abdominal Pain, Bloody Stool, Constipation, Diarrhea, Flatus, Hematemesis : Reports: No Symptoms Musculoskeletal: Reports: No Symptoms Skin: Reports: No Symptoms Neurological: Reports: No Symptoms Psychiatric: Reports: No Symptoms Hematologic/Lymphatic: Reports: No Symptoms Immunologic: Reports: No Symptoms ED EXAM, GI/ABD - Physical Exam Exam: See Below Exam Limited By: No Limitations General Appearance: Alert, WD/WN, No Apparent Distress Eyes: Bilateral: Normal Appearance, EOMI Ears: Hearing Grossly Normal Nose: Normal Inspection, Normal Mucosa, No Blood Throat/Mouth: Normal Inspection, Normal Lips, Normal Teeth, Normal Gums, Normal Oropharynx, Normal Voice, No Airway Compromise, Other (Moist mucous membranes) Head: Atraumatic, Normocephalic Neck: Normal Inspection, Supple, Non-Tender, Full Range of Motion Respiratory/Chest: No Respiratory Distress, Lungs Clear, Normal Breath Sounds, No Accessory Muscle Use, Chest Non-Tender Cardiovascular: Normal Peripheral Pulses, Regular Rate, Rhythm, No Edema, No Gallop, No JVD, No Murmur GI/Abdominal Exam: Normal Bowel Sounds, Soft, Non-Tender, No Organomegaly, No Distention. No: Guarding, Rigid, Rebound, Tender Back Exam: Full Range of Motion Extremities: Normal Inspection, Normal Range of Motion, Non-Tender, Normal Capillary Refill Neurological: Alert, Oriented, CN II-XII Intact, Normal Cognition, Normal Gait, No Motor/Sensory Deficits Psychiatric: Normal Affect, Normal Mood Skin Exam: Warm, Dry, Intact, Normal Color, No Rash Lymphatic: Other (Patient has normal skin turgor moist buccal membranes all vital signs within normal limits no signs of clinical dehydration) Course - Vital Signs Text/Narrative:: Patient is okay with getting Phenergan IM secondary to the nausea and dry heaving and for the cough she is okay with being discharged with Zofran p.o. and going home for oral hydration. Secondary to pain do not wish to wait for IV. - Orders/Labs/Meds Orders: Active Orders 24 hr Category Date Time Status Ondansetron [Take Home: Ondansetron ODT 4 MG, 2 Tab Med 10/19/21 19:48 Once Pack] 2 packet PO ONETIME ONE Meds: Medications Discontinued Medications Generic Name Dose Route Start Last Admin Trade Name Freq PRN Reason Stop Dose Admin Promethazine HCl 25 mg 10/19/21 19:47 Promethazine 25 Mg/Ml Sdv IM 10/19/21 19:48 ONETIME ONE Departure - Departure Time of Disposition: 19:50 Disposition: Home, Self-Care 01 Condition: Good Clinical Impression: Nausea and vomiting, Cough - Discharge Information *PRESCRIPTION DRUG MONITORING PROGRAM REVIEWED*: No *COPY OF PRESCRIPTION DRUG MONITORING REPORT IN PATIENT CAITLYN: No Referrals: Shasha Peguero MD [Primary Care Provider] - Forms: ED Department Discharge - Problem List & Annotations (1) Cough SNOMED Code(s): 06183574 Code(s): R05.9 - COUGH, UNSPECIFIED Status: Acute Current Visit: Yes (2) Nausea and vomiting SNOMED Code(s): 51746399 Code(s): R11.2 - NAUSEA WITH VOMITING, UNSPECIFIED Status: Acute Current Visit: Yes - My Orders Last 24 Hours: My Active Orders 10/19/21 19:48 Ondansetron [Take Home: Ondansetron ODT 4 MG, 2 Tab Pack] 2 packet PO ONETIME ONE - Assessment/Plan Last 24 Hours: My Active Orders 10/19/21 19:48 Ondansetron [Take Home: Ondansetron ODT 4 MG, 2 Tab Pack] 2 packet PO ONETIME ONE
[2021-10-19 21:59] VITALS: BP 122/61; PULSE 86
== END 2021-10-19 22:04 | disposition home or self-care (01) ==
LOC: VM.ED 19:33
DX: R11.2 Nausea with vomiting, unspecified (principal); R05.9 Cough, unspecified; I48.91 Unspecified atrial fibrillation; Z88.8 Allergy status to other drugs, medicaments and biological substances; Z88.2 Allergy status to sulfonamides; Z88.5 Allergy status to narcotic agent; Z79.899 Other long term (current) drug therapy
CPT/HCPCS: 96372; 99283; A9270-GY; J2550

== ENCOUNTER 2021-10-29 13:52 | Inpatient (IN) | payer BC ==
[2021-10-29] MEDS ORDERED: Acetaminophen 500 MG Tab PO ONE (15:34)
[2021-10-29 16:07] LABS: CHLORIDE,CL 90 mmol/L (98-107)
[2021-10-29 16:15] LABS: ANION GAP 13.4 mmol/L (5-15); SODIUM,NA 125 mmol/L (136-145)
--- NOTE | 2021-10-29 16:16 | CR ---
[id number] RAD/RAD Chest PA And Lateral EXAM: RAD Chest PA And Lateral INDICATION: COUGH,FEVER,SHORTNESS OF BREATH. COMPARISON: March 06, 2019. DISCUSSION: Cardiomediastinal silhouette is normal in size and contour. Patchy pulmonary infiltrates bilaterally, right greater than left. No pneumothorax or pleural effusion. IMPRESSION: Patchy pulmonary infiltrates bilaterally, right greater than left. Findings are likely infectious/inflammatory in nature as can be seen with atypical/viral pneumonia. Kole Fernandez DO 10/29/21 [id number] Thank you for allowing us to participate in the care of your patient.
[2021-10-29] MEDS ORDERED: Sodium Chloride 0.9% 1,000 ML IV ONE (16:21)
[2021-10-29] MEDS ORDERED: Sodium Chloride 0.9% 10 ML Syringe FLUSH PRN (16:21)
[2021-10-29] MEDS ORDERED: Sodium Chloride 1 GM Tab PO ONE (16:23)
--- NOTE | 2021-10-29 16:35 | EDM.PDOC ---
ED HPI GENERAL MEDICAL PROBLEM - General Chief Complaint: Fever Stated Complaint: COUGH,TEMP Time Seen by Provider: 10/29/21 15:30 Source of Information: Reports: Patient History Limitations: Reports: No Limitations - History of Present Illness INITIAL COMMENTS - FREE TEXT/NARRATIVE: Patient presents to the ED for not feeling well for the last two weeks. She states it started out with vomiting and she came in and received an injection of zofran. SHe has been fatigued since then, dyspnea with exertion, body aches, lack of appetite, cough and feeling unwell. She has not been eating or drinking well. Her has been positive for influenza A about 2 weeks ago. SHe is vaccinated against influenza but not covid. no pain. - Related Data Allergies Allergy/AdvReac Type Severity Reaction Status Date / Time atorvastatin calcium Allergy Cannot Verified 10/29/21 15:40 [From Lipitor] Remember rosuvastatin calcium Allergy Cannot Verified 10/29/21 15:40 [From Crestor] Remember Sulfa (Sulfonamide Allergy Facial Verified 10/29/21 15:40 Antibiotics) Swelling codeine AdvReac Nausea and Verified 10/29/21 15:40 Vomiting tussenel Allergy Cannot Uncoded 10/29/21 15:40 Remember Home Meds: Home Meds buPROPion [Wellbutrin XL] 150 mg PO DAILY 12/01/13 [History] Calcium Carb & Citrate/Vit D3 [Calcium + Vitamin D3 Caplet] 1 each PO DAILY 10/23/14 [History] Cranberry Fruit Extract/Vit C [Azo Cranberry Softgel] 1 cap PO DAILY 02/07/16 [History] Ascorbate Calcium [Vitamin C] 1 tab PO DAILY 02/12/16 [History] Spironolactone 100 mg PO DAILY 11/15/18 [History] Acetaminophen [Tylenol] 650 mg PO Q4H PRN 04/06/20 [History] Cyanocobalamin (Vitamin B-12) [Vitamin B-12] 1,000 mcg PO DAILY 04/06/20 [History] Fenofibrate Nanocrystallized [Fenofibrate] 1 tab PO BEDTIME 04/06/20 [History] oxyCODONE HCl/Acetaminophen [Endocet 5-325 Tablet] 1 each PO ASDIRECTED PRN [History] Past Medical History Cardiovascular History: Reports: Afib, High Cholesterol, Other (See Below) Other Cardiovascular History: ablation in November Respiratory History: Reports: None Gastrointestinal History: Reports: Cholelithiasis, Diverticulosis, GERD, Hiatal Hernia, Other (See Below) Other Gastrointestinal History: Epigastric pain Genitourinary History: Reports: None, Renal Calculus CLASSIFIED ADVERTISING MANAGER History: Reports: Other (See Below) Other CLASSIFIED ADVERTISING MANAGER History: Menopause Musculoskeletal History: Reports: Back Pain, Chronic, Osteoarthritis, Other (See Below) Other Musculoskeletal History: Chronic shoulder bursitis Neurological History: Reports: None Psychiatric History: Reports: Other (See Below) Other Psychiatric History: Adjustment disorder Endocrine/Metabolic History: Reports: Other (See Below) Other Endocrine/Metabolic History: Hypercalcemia Hematologic History: Reports: None Immunologic History: Reports: None Oncologic (Cancer) History: Reports: None Dermatologic History: Reports: Other (See Below) Other Dermatologic History: Acne - Past Surgical History HEENT Surgical History: Reports: Naso-Sinus Surgery, Tonsillectomy Cardiovascular Surgical History: Reports: Cardiac Ablation GI Surgical History: Reports: Cholecystectomy, Small Bowel, Other (See Below) (Hiatal Hernia Repair) Musculoskeletal Surgical History: Reports: Arthroscopic Procedure Social & Family History - Family History Family Medical History: No Pertinent Family History - Caffeine Use Caffeine Use: Reports: Coffee ED ROS GENERAL - Review of Systems Review Of Systems: See Below Constitutional: Reports: Fever, Chills, Malaise, Weakness, Fatigue, Decreased Appetite HEENT: Reports: Rhinitis. Denies: Sinus Problem, Throat Pain Respiratory: Reports: Cough. Denies: Shortness of Breath Cardiovascular: Reports: Dyspnea on Exertion. Denies: Chest Pain GI/Abdominal: Reports: Decreased Appetite : Reports: No Symptoms Musculoskeletal: Reports: Muscle Pain Skin: Reports: No Symptoms Neurological: Reports: Dizziness, Headache Psychiatric: Reports: No Symptoms ED EXAM, GENERAL - Physical Exam Exam: See Below Exam Limited By: No Limitations General Appearance: Alert, WD/WN, No Apparent Distress Eye Exam: Bilateral Eye: EOMI, Normal Inspection, PERRL Ears: Normal External Exam Nose: Normal Inspection, Normal Mucosa Throat/Mouth: Other (dry mucous membranes) Head: Atraumatic, Normocephalic Neck: Normal Inspection Respiratory/Chest: Chest Non-Tender, Decreased Breath Sounds, Crackles (bases) Cardiovascular: Normal Peripheral Pulses, Regular Rate, Rhythm Extremities: Normal Inspection, Normal Range of Motion, Non-Tender, No Pedal Edema Neurological: Alert, Oriented, CN II-XII Intact, Normal Cognition Skin Exam: Warm Course - Vital Signs Last Recorded V/S: Last Vital Signs Temp 37.6 C 10/29/21 19:14 Pulse 66 10/29/21 19:14 Resp 18 10/29/21 19:14 BP 97/56 L 10/29/21 19:14 Pulse Ox 97 10/29/21 19:14 - Orders/Labs/Meds Orders: Active Orders 24 hr Category Date Time Status RT Aerosol Therapy [RC] ASDIRECTED Care 10/29/21 18:56 Active CULTURE BLOOD [BC] Stat Lab 10/29/21 19:04 Received CULTURE BLOOD [BC] Stat Lab 10/29/21 19:12 Received Albuterol [Proventil Neb Soln] Med 10/29/21 18:56 Active 2.5 mg NEB Q4H PRN Azithromycin [Zithromax] 500 mg Med 10/29/21 18:30 Active Sodium Chloride 0.9% [Normal Saline AdvBag] 250 ml IV DAILY Oseltamivir [Tamiflu] Med 10/29/21 20:00 Active 75 mg PO BID Sodium Chloride 0.9% [Saline Flush] Med 10/29/21 16:21 Active 10 ml FLUSH ASDIRECTED PRN cefTRIAXone [Rocephin] Med 10/29/21 18:30 Active 1 gm IVPUSH DAILY Blood Culture x2 Reflex Set [OM.PC] Stat Oth 10/29/21 18:48 Ordered Peripheral IV Insertion Adult [OM.PC] Routine Oth 10/29/21 16:21 Ordered Medication Orders Albuterol (Albuterol 0.083% 2.5 Mg/3 Ml Neb Soln) 2.5 mg NEB Q4H PRN PRN Reason: Shortness of Breath Ceftriaxone Sodium (Ceftriaxone 1 Gm Vial) 1 gm IVPUSH DAILY NORMA Last Admin: 10/29/21 19:10 Dose: 1 gm Documented by: ONEAL Azithromycin 500 mg/ Sodium (Chloride) 250 mls @ 250 mls/hr IV DAILY NORMA Oseltamivir Phosphate (Oseltamivir 75 Mg Cap) 75 mg PO BID NORMA Last Admin: 10/29/21 19:09 Dose: 75 mg Documented by: ONEAL Sodium Chloride (Sodium Chloride 0.9% 10 Ml Syringe) 10 ml FLUSH ASDIRECTED PRN PRN Reason: Keep Vein Open Labs: Laboratory Tests 10/29/21 10/29/21 10/29/21 Range/Units 15:42 15:42 15:42 WBC 17.9 H (4.0-10.0) x10^3/uL RBC 4.36 (4.00-5.50) x10^6/uL Hgb 13.0 (12.0-16.0) g/dL Hct 37.0 (33.0-47.0) % MCV 84.9 (78.0-93.0) fL MCH 29.8 (26.0-32.0) pg MCHC 35.1 (32.0-36.0) g/dL RDW Coeff of [place] 12.9 (10.0-15.0) % Plt Count 385 (130-400) x10^3/uL Immature Gran % (Auto) 1.20 H (0.00-0.43) % Neut % (Auto) 86.2 H (50.0-80.0) % Lymph % (Auto) 5.0 L (25.0-50.0) % [place]ary % (Auto) 7.5 (2.0-11.0) % Eos % (Auto) 0.0 (0.0-4.0) % Baso % (Auto) 0.1 L (0.2-1.2) % Neut # (Auto) 15.5 H (1.8-7.7) x10^3/uL Lymph # (Auto) 0.9 L (1.0-4.8) x10^3/uL Geary # (Auto) 1.3 H (0.0-0.8) x10^3/uL Eos # (Auto) 0.0 (0.0-0.5) x10^3/uL Baso # (Auto) 0.0 (0.0-0.2) x10^3/uL Immature Gran # (Auto) 0.22 H (0.00-0.07) x10^3/uL Sodium 125 L* (136-145) mmol/L Potassium 3.4 L (3.5-5.1) mmol/L Chloride 90 L (98-107) mmol/L Carbon Dioxide 25 (21-32) mmol/L Anion Gap 13.4 (5-15) mmol/L BUN 15 (7-18) mg/dL Creatinine 0.6 (0.55-1.02) mg/dL Est Cr Clr Drug Dosing TNP Estimated GFR (MDRD) > 60 Glucose 104 H (70-99) mg/dL Lactic Acid 1.6 (0.4-2.0) mmol/L Calcium 9.0 (8.5-10.1) mg/dL Corrected Calcium 10.1 (8.5-10.1) mg/dL Total Bilirubin 2.0 H (0.2-1.0) mg/dL AST 94 H (15-37) U/L ALT 577 H (14-59) U/L Alkaline Phosphatase 381 H (46-116) U/L C-Reactive Protein 38.8 H (<=0.9) mg/dL Total Protein 6.5 (6.4-8.2) g/dL Albumin 2.6 L (3.4-5.0) g/dL Globulin 3.9 Albumin/Globulin Ratio 0.67 Urine Color (YELLOW) Urine Appearance (CLEAR) Urine pH (5.0-8.0) Ur Specific [place] Urine Protein (NEGATIVE) mg/dL Urine Glucose (UA) (NEGATIVE) mg/dL Urine Ketones (NEGATIVE) mg/dL Urine Occult Blood (NEGATIVE) Urine Nitrite (NEGATIVE) Urine Bilirubin (NEGATIVE) Urine Urobilinogen (0.2) EU/dL Ur Leukocyte Esterase (NEGATIVE) Influenza Type A RNA (NEGATIVE) RSV RNA (INAAT) (NEGATIVE) Influenza Type B RNA (NEGATIVE) SARS-CoV-2 RNA (DMITRI) (NEGATIVE) 10/29/21 10/29/21 Range/Units 15:53 18:16 WBC (4.0-10.0) x10^3/uL RBC (4.00-5.50) x10^6/uL Hgb (12.0-16.0) g/dL Hct (33.0-47.0) % MCV (78.0-93.0) fL MCH (26.0-32.0) pg MCHC (32.0-36.0) g/dL RDW Coeff of [place] (10.0-15.0) % Plt Count (130-400) x10^3/uL Immature Gran % (Auto) (0.00-0.43) % Neut % (Auto) (50.0-80.0) % Lymph % (Auto) (25.0-50.0) % Geary % (Auto) (2.0-11.0) % Eos % (Auto) (0.0-4.0) % Baso % (Auto) (0.2-1.2) % Neut # (Auto) (1.8-7.7) x10^3/uL Lymph # (Auto) (1.0-4.8) x10^3/uL Geary # (Auto) (0.0-0.8) x10^3/uL Eos # (Auto) (0.0-0.5) x10^3/uL Baso # (Auto) (0.0-0.2) x10^3/uL Immature Gran # (Auto) (0.00-0.07) x10^3/uL Sodium (136-145) mmol/L Potassium (3.5-5.1) mmol/L Chloride (98-107) mmol/L Carbon Dioxide (21-32) mmol/L Anion Gap (5-15) mmol/L BUN (7-18) mg/dL Creatinine (0.55-1.02) mg/dL Est Cr Clr Drug Dosing Estimated GFR (MDRD) Glucose (70-99) mg/dL Lactic Acid (0.4-2.0) mmol/L Calcium (8.5-10.1) mg/dL Corrected Calcium (8.5-10.1) mg/dL Total Bilirubin (0.2-1.0) mg/dL AST (15-37) U/L ALT (14-59) U/L Alkaline Phosphatase (46-116) U/L C-Reactive Protein (<=0.9) mg/dL Total Protein (6.4-8.2) g/dL Albumin (3.4-5.0) g/dL Globulin Albumin/Globulin Ratio Urine Color Dark yellow H (YELLOW) Urine Appearance Clear (CLEAR) Urine pH 6.5 (5.0-8.0) Ur Specific [place] 1.010 Urine Protein Negative (NEGATIVE) mg/dL Urine Glucose (UA) Negative (NEGATIVE) mg/dL Urine Ketones Negative (NEGATIVE) mg/dL Urine Occult Blood Negative (NEGATIVE) Urine Nitrite Negative (NEGATIVE) Urine Bilirubin Negative (NEGATIVE) Urine Urobilinogen 2.0 H (0.2) EU/dL Ur Leukocyte Esterase Negative (NEGATIVE) Influenza Type A RNA Positive H (NEGATIVE) RSV RNA (INAAT) Negative (NEGATIVE) Influenza Type B RNA Negative (NEGATIVE) SARS-CoV-2 RNA (DMITRI) Negative (NEGATIVE) Meds: Medications Generic Name Dose Route Start Last Admin Trade Name Frerhonda PRN Reason Stop Dose Admin Albuterol 2.5 mg 10/29/21 18:56 Albuterol 0.083% 2.5 Mg/3 Ml Neb Soln NEB Q4H PRN Shortness of Breath Ceftriaxone Sodium 1 gm 10/29/21 18:30 10/29/21 19:10 Ceftriaxone 1 Gm Vial IVPUSH 1 gm DAILY NORMA Administration Azithromycin 500 mg/ Sodium 250 mls @ 250 mls/hr 10/29/21 18:30 Chloride IV DAILY NORMA Oseltamivir Phosphate 75 mg 10/29/21 20:00 10/29/21 19:09 Oseltamivir 75 Mg Cap PO 75 mg BID NORMA Administration Sodium Chloride 10 ml 10/29/21 16:21 Sodium Chloride 0.9% 10 Ml Syringe FLUSH ASDIRECTED PRN Keep Vein Open Discontinued Medications Generic Name Dose Route Start Last Admin Trade Name Tonnyq PRN Reason Stop Dose Admin Acetaminophen 1,000 mg 10/29/21 15:34 10/29/21 15:56 Acetaminophen 500 Mg Tab PO 10/29/21 15:35 1,000 mg ONETIME ONE Administration Sodium Chloride 1,000 mls @ 999 mls/hr 10/29/21 16:21 10/29/21 16:54 Normal Saline IV 10/29/21 17:21 999 mls/hr ONETIME ONE Administration Iopamidol 70 ml 10/29/21 17:47 10/29/21 17:45 Iopamidol 612 Mg/Ml 100 Ml Bottle IVPUSH 10/29/21 17:48 70 ml ONETIME ONE Administration Sodium Chloride 1 gm 10/29/21 16:23 10/29/21 16:54 Sodium Chloride 1 Gm Tab PO 10/29/21 16:24 1 gm ONETIME ONE Administration - Radiology Interpretation Free Text/Narrative:: chest x-ray with patchy pulmonary infiltrates bilaterally, right greater than left, liekly infectious/inflammatory in nature, atypical pneumonia or viral pneumoniai considered interpreted by radiology 1831: c chest with mixed density parenchymal opacification and consolidation in both lungs more prominent on the right. Findings consistent with COVID pneumonia, ct abdomen with no acute findings. - Re-Assessments/Exams Free Text/Narrative Re-Assessment/Exam: sodium is low at 125, will give one liter bolus normal saline and one gram salt tablet. Has luekocytosis, elevated LFT and positive for influenza A. not hypoxic. CT abdomen and pelvis with IV contrast. ct non contrast chest to look for consolidation 10/29/21 18:09 10/29/21 18:20 blood cutlures x 2 martín give rocephin IV 1 gram and azithromycin 500 mg IV, tamiflu po. obsrevation for leukocytosis, elevated LFT probable due to illness and right lower infiltrate. 10/29/21 18:48 10/29/21 19:16 Dr. Peguero will admit. Departure - Departure Time of Disposition: 19:18 Disposition: Admitted As Inpatient 68 Condition: Fair Clinical Impression: Leukocytosis, Elevated LFTs, Influenza A, Fever, Hyponatremia - Discharge Information Referrals: Shasha Peguero MD [Primary Care Provider] - Forms: ED Department Discharge Sepsis Event Note (ED) - Focused Exam Vital Signs: Vital Signs Temp Temp Pulse Resp BP Pulse Ox 10/29/21 19:14 37.6 C 66 18 97/56 L 97 10/29/21 16:26 37.9 C 10/29/21 15:56 38.4 C H 10/29/21 15:30 38.4 C H 69 16 94/50 L 96 - My Orders Last 24 Hours: My Active Orders 10/29/21 16:21 Sodium Chloride 0.9% [Saline Flush] 10 ml FLUSH ASDIRECTED PRN Peripheral IV Insertion Adult [OM.PC] Routine 10/29/21 18:30 Azithromycin [Zithromax] 500 mg Sodium Chloride 0.9% [Normal Saline AdvBag] 250 ml IV DAILY cefTRIAXone [Rocephin] 1 gm IVPUSH DAILY 10/29/21 18:48 Blood Culture x2 Reflex Set [OM.PC] Stat 10/29/21 18:56 RT Aerosol Therapy [RC] ASDIRECTED Albuterol [Proventil Neb Soln] 2.5 mg NEB Q4H PRN 10/29/21 19:04 CULTURE BLOOD [BC] Stat 10/29/21 19:12 CULTURE BLOOD [BC] Stat 10/29/21 20:00 Oseltamivir [Tamiflu] 75 mg PO BID - Assessment/Plan Last 24 Hours: My Active Orders 10/29/21 16:21 Sodium Chloride 0.9% [Saline Flush] 10 ml FLUSH ASDIRECTED PRN Peripheral IV Insertion Adult [OM.PC] Routine 10/29/21 18:30 Azithromycin [Zithromax] 500 mg Sodium Chloride 0.9% [Normal Saline AdvBag] 250 ml IV DAILY cefTRIAXone [Rocephin] 1 gm IVPUSH DAILY 10/29/21 18:48 Blood Culture x2 Reflex Set [OM.PC] Stat 10/29/21 18:56 RT Aerosol Therapy [RC] ASDIRECTED Albuterol [Proventil Neb Soln] 2.5 mg NEB Q4H PRN 10/29/21 19:04 CULTURE BLOOD [BC] Stat 10/29/21 19:12 CULTURE BLOOD [BC] Stat 10/29/21 20:00 Oseltamivir [Tamiflu] 75 mg PO BID
[2021-10-29 16:40] LABS: CORONAVIRUS COVID-19 NAA NEGATIVE (NEGATIVE); RESPIRATORY SYNCYTIAL VIR NAA NEGATIVE (NEGATIVE)
[2021-10-29] MEDS ORDERED: Iopamidol 612 MG/ML 100 ML Bottle IVPUSH ONE (17:47)
--- NOTE | 2021-10-29 18:39 | CT ---
[id number] CT/CT Chest WO IV EXAM: CT Chest WO IV CLINICAL DATA: PNEUMONIA. COMPARISON STUDY: Radiograph from today. FINDINGS: Lungs: Scattered areas of parenchymal opacification in both lungs. On the right there is extensive and dense parenchymal consolidation. On the left there is mixed density opacification, including patchy areas of groundglass opacification. Combination of findings are consistent with pneumonia Mediastinum: No mediastinal or hilar lymphadenopathy. Heart and great vessels: Heart is normal in size. No pericardial effusion. Thoracic aorta is normal in caliber. Pulmonary arteries are normal in caliber. Bones: No acute fracture or compression deformity. Spondylosis. IMPRESSION: Mixed density parenchymal opacification and consolidation in both lungs more prominent on the right. Findings are consistent with pneumonia, including COVID pneumonia. Rashaad Sanderson MD 10/29/21 [id number] Thank you for allowing us to participate in the care of your patient.
--- NOTE | 2021-10-29 18:44 | CT ---
[id number] CT/CT Abdomen Pelvis W IV EXAM: CT Abdomen Pelvis W IV CLINICAL DATA: ELEVATED LFT'S, LEUKOCYTOSIS, FATIGUE. COMPARISON STUDY: July 2021. FINDINGS: Cholecystectomy. Pneumobilia is likely sequela of prior sphincterotomy. Liver is otherwise unremarkable. Spleen, pancreas, adrenal and adrenal glands are unremarkable. Nonobstructing left nephrolithiasis. Stone burden is mild. No urinary tract obstruction. Suture line at the junction of the descending and sigmoid segments of the colon. Correlate with surgical history. Colonic diverticula. No diverticulitis. No colitis. No small bowel obstruction or inflammation. Fibroid uterus. Adnexal regions are unremarkable. Urinary bladder is unremarkable. Spondylosis. No acute fracture or compression deformity. IMPRESSION: No acute findings in the abdomen or pelvis. Other findings are described above. Rashaad Sanderson MD 10/29/21 [id number] Thank you for allowing us to participate in the care of your patient.
[2021-10-29] MEDS ORDERED: Albuterol 0.083% 2.5 MG/3 ML Neb Soln NEB PRN (18:56)
[2021-10-29] MEDS: cefTRIAXone 1 GM Vial IVPUSH SCH (19:10)
[2021-10-29] MEDS: Azithromycin 500 MG in Sodium Chloride 0.9% 250 ML IV SCH (19:16)
[2021-10-29] MEDS ORDERED: Ibuprofen 200 MG Tab PO PRN (19:57)
[2021-10-29] MEDS ORDERED: Acetaminophen 325 MG Tab PO PRN (19:57)
[2021-10-29] MEDS ORDERED: Oseltamivir 75 MG Cap PO SCH (20:00)
--- NOTE | 2021-10-29 21:22 | PCM.HP.2 ---
H&P History of Present Illness - General Date of Service: 10/29/21 Admit Problem/Dx: Admission Diagnosis/Problem Admission Diagnosis/Problem Pneumonia Source of Information: Patient History Limitations: Reports: No Limitations - History of Present Illness Initial Comments - Free Text/Narative: Mrs. Fitzpatrick is a 66 yo female with PMH of a-fib s/p ablation, hiatal hernia s/p denisa, hyperlipidemia, hyperparathyroidism, GERD, diverticulitis, adjustment disorder, acne, and OA who presented to the ER for evaluation of progressively worsening generalized weakness x 1 week. Initially developed dry heaves and nausea about 2.5 weeks ago. Was seen in the ER and prescribed anti- emetics. Then her came down with influenza A and she started to have cough, fever/chills, myalgias, and generalized weakness as well. She was seen in clinic and prescribed tamiflu. She completed all doses and still was not feeling better. She continues with significant coughing, fever/chills, and weakness. Her appetite has been very poor. She has not had any vomiting or diarrhea for the past couple of days. Her urine was dark earlier today but already clear after some IV fluids in the ER. No UTI symptoms. - Related Data Allergies/Adverse Reactions: Allergies Allergy/AdvReac Type Severity Reaction Status Date / Time atorvastatin calcium Allergy Cannot Verified 10/29/21 15:40 [From Lipitor] Remember rosuvastatin calcium Allergy Cannot Verified 10/29/21 15:40 [From Crestor] Remember Sulfa (Sulfonamide Allergy Facial Verified 10/29/21 15:40 Antibiotics) Swelling codeine AdvReac Nausea and Verified 10/29/21 15:40 Vomiting tussenel Allergy Cannot Uncoded 10/29/21 15:40 Remember Home Medications: Home Meds buPROPion [Wellbutrin XL] 150 mg PO DAILY 12/01/13 [History] Calcium Carb & Citrate/Vit D3 [Calcium + Vitamin D3 Caplet] 1 each PO DAILY 10/23/14 [History] Cranberry Fruit Extract/Vit C [Azo Cranberry Softgel] 1 cap PO DAILY 02/07/16 [History] Ascorbate Calcium [Vitamin C] 1 tab PO DAILY 02/12/16 [History] Spironolactone 100 mg PO DAILY 11/15/18 [History] Acetaminophen [Tylenol] 650 mg PO Q4H PRN 04/06/20 [History] Cyanocobalamin (Vitamin B-12) [Vitamin B-12] 1,000 mcg PO DAILY 04/06/20 [History] Fenofibrate Nanocrystallized [Fenofibrate] 1 tab PO BEDTIME 04/06/20 [History] oxyCODONE HCl/Acetaminophen [Endocet 5-325 Tablet] 1 each PO ASDIRECTED PRN 0 04/06/20 [History] Past Medical History HEENT History: Reports: None Cardiovascular History: Reports: Afib, High Cholesterol, Other (See Below) Other Cardiovascular History: ablation in November Respiratory History: Reports: None Gastrointestinal History: Reports: Cholelithiasis, Diverticulosis, GERD, Hiatal Hernia, Other (See Below) Other Gastrointestinal History: Epigastric pain Genitourinary History: Reports: Renal Calculus CRAFT COORDINATOR History: Reports: Other (See Below) Other OB/BYN History: Menopause Musculoskeletal History: Reports: Back Pain, Chronic, Osteoarthritis, Other (See Below) Other Musculoskeletal History: Chronic shoulder bursitis Neurological History: Reports: None Psychiatric History: Reports: Other (See Below) Other Psychiatric History: Adjustment disorder Endocrine/Metabolic History: Reports: Hyperparathyroidism, Other (See Below) Other Endocrine/Metabolic History: Hypercalcemia Hematologic History: Reports: None Immunologic History: Reports: None Oncologic (Cancer) History: Reports: None Dermatologic History: Reports: Other (See Below) Other Dermatologic History: Acne - Infectious Disease History Infectious Disease History: Reports: Influenza - Past Surgical History HEENT Surgical History: Reports: Naso-Sinus Surgery, Tonsillectomy Cardiovascular Surgical History: Reports: Cardiac Ablation GI Surgical History: Reports: Cholecystectomy, Small Bowel, Other (See Below) (Hiatal Hernia Repair) Musculoskeletal Surgical History: Reports: Arthroscopic Procedure Social & Family History - Family History Oncologic: Reports: Bladder, Lung - Tobacco Use Tobacco Use Status *Q: Never Tobacco User - Caffeine Use Caffeine Use: Reports: Coffee - Alcohol Use Alcohol Use History: No Alcohol Use in Last Twelve Months: Yes Alcohol Use Frequency: Socially - Recreational Drug Use Recreational Drug Use: No - Living Situation & Occupation Living situation: Reports: , with Spouse Occupation: Employed H&P Review of Systems - Review of Systems: Review Of Systems: See Below General: Reports: Fever, Chills, Malaise, Weakness HEENT: Reports: Headaches Pulmonary: Reports: Cough, Sputum. Denies: Shortness of Breath Cardiovascular: Reports: No Symptoms Gastrointestinal: Reports: No Symptoms Genitourinary: Reports: No Symptoms Musculoskeletal: Reports: No Symptoms Skin: Reports: No Symptoms Psychiatric: Reports: No Symptoms Neurological: Reports: No Symptoms Hematologic/Lymphatic: Reports: No Symptoms Exam - Exam Exam: See Below - Vital Signs Vital Signs: Last Vital Signs Temp 37.6 C 10/29/21 19:14 Pulse 66 10/29/21 19:14 Resp 18 10/29/21 19:14 BP 97/56 L 10/29/21 19:14 Pulse Ox 97 10/29/21 19:14 - Exam General: Alert, Oriented, Cooperative HEENT: Conjunctiva Clear, Mucosa Moist & [place], Posterior Pharynx Clear, Pupils Equal, Pupils Reactive, TMs Clear Neck: Supple, Trachea Midline. No: Lymphadenopathy, Thyromegaly Lungs: Normal Respiratory Effort, Crackles (scattered throughout both lungs but most prominent in the RLL) Cardiovascular: Regular Rate, Regular Rhythm, Normal S1, Normal S2 GI/Abdominal Exam: Normal Bowel Sounds, Soft, Non-Tender, No Organomegaly, No Distention, No Mass Extremities: Normal Inspection, Non-Tender, No Pedal Edema, Normal Capillary R efill Peripheral Pulses: 2+: Radial (L), Radial (R) Skin: Warm, Dry, Intact Neuro Extensive - Mental Status: Alert, Oriented x3, Normal Mood/Affect - Patient Data Lab Results Last 24 hrs: Laboratory Results - last 24 hr 10/29/21 10/29/21 10/29/21 Range/Units 15:42 15:42 15:42 WBC 17.9 H (4.0-10.0) x10^3/uL RBC 4.36 (4.00-5.50) x10^6/uL Hgb 13.0 (12.0-16.0) g/dL Hct 37.0 (33.0-47.0) % MCV 84.9 (78.0-93.0) fL MCH 29.8 (26.0-32.0) pg MCHC 35.1 (32.0-36.0) g/dL RDW Coeff of [place] 12.9 (10.0-15.0) % Plt Count 385 (130-400) x10^3/uL Immature Gran % (Auto) 1.20 H (0.00-0.43) % Neut % (Auto) 86.2 H (50.0-80.0) % Lymph % (Auto) 5.0 L (25.0-50.0) % [place] % (Auto) 7.5 (2.0-11.0) % Eos % (Auto) 0.0 (0.0-4.0) % Baso % (Auto) 0.1 L (0.2-1.2) % Neut # (Auto) 15.5 H (1.8-7.7) x10^3/uL Lymph # (Auto) 0.9 L (1.0-4.8) x10^3/uL [place] # (Auto) 1.3 H (0.0-0.8) x10^3/uL Eos # (Auto) 0.0 (0.0-0.5) x10^3/uL Baso # (Auto) 0.0 (0.0-0.2) x10^3/uL Immature Gran # (Auto) 0.22 H (0.00-0.07) x10^3/uL Sodium 125 L* (136-145) mmol/L Potassium 3.4 L (3.5-5.1) mmol/L Chloride 90 L (98-107) mmol/L Carbon Dioxide 25 (21-32) mmol/L Anion Gap 13.4 (5-15) mmol/L BUN 15 (7-18) mg/dL Creatinine 0.6 (0.55-1.02) mg/dL Est Cr Clr Drug Dosing TNP Estimated GFR (MDRD) > 60 Glucose 104 H (70-99) mg/dL Lactic Acid 1.6 (0.4-2.0) mmol/L Calcium 9.0 (8.5-10.1) mg/dL Corrected Calcium 10.1 (8.5-10.1) mg/dL Total Bilirubin 2.0 H (0.2-1.0) mg/dL AST 94 H (15-37) U/L ALT 577 H (14-59) U/L Alkaline Phosphatase 381 H (46-116) U/L C-Reactive Protein 38.8 H (<=0.9) mg/dL Total Protein 6.5 (6.4-8.2) g/dL Albumin 2.6 L (3.4-5.0) g/dL Globulin 3.9 Albumin/Globulin Ratio 0.67 Urine Color (YELLOW) Urine Appearance (CLEAR) Urine pH (5.0-8.0) Ur Specific [place] Urine Protein (NEGATIVE) mg/dL Urine Glucose (UA) (NEGATIVE) mg/dL Urine Ketones (NEGATIVE) mg/dL Urine Occult Blood (NEGATIVE) Urine Nitrite (NEGATIVE) Urine Bilirubin (NEGATIVE) Urine Urobilinogen (0.2) EU/dL Ur Leukocyte Esterase (NEGATIVE) Influenza Type A RNA (NEGATIVE) RSV RNA (INAAT) (NEGATIVE) Influenza Type B RNA (NEGATIVE) SARS-CoV-2 RNA (DMITRI) (NEGATIVE) 10/29/21 10/29/21 Range/Units 15:53 18:16 WBC (4.0-10.0) x10^3/uL RBC (4.00-5.50) x10^6/uL Hgb (12.0-16.0) g/dL Hct (33.0-47.0) % MCV (78.0-93.0) fL MCH (26.0-32.0) pg MCHC (32.0-36.0) g/dL RDW Coeff of [place] (10.0-15.0) % Plt Count (130-400) x10^3/uL Immature Gran % (Auto) (0.00-0.43) % Neut % (Auto) (50.0-80.0) % Lymph % (Auto) (25.0-50.0) % [place] % (Auto) (2.0-11.0) % Eos % (Auto) (0.0-4.0) % Baso % (Auto) (0.2-1.2) % Neut # (Auto) (1.8-7.7) x10^3/uL Lymph # (Auto) (1.0-4.8) x10^3/uL [place] # (Auto) (0.0-0.8) x10^3/uL Eos # (Auto) (0.0-0.5) x10^3/uL Baso # (Auto) (0.0-0.2) x10^3/uL Immature Gran # (Auto) (0.00-0.07) x10^3/uL Sodium (136-145) mmol/L Potassium (3.5-5.1) mmol/L Chloride (98-107) mmol/L Carbon Dioxide (21-32) mmol/L Anion Gap (5-15) mmol/L BUN (7-18) mg/dL Creatinine (0.55-1.02) mg/dL Est Cr Clr Drug Dosing Estimated GFR (MDRD) Glucose (70-99) mg/dL Lactic Acid (0.4-2.0) mmol/L Calcium (8.5-10.1) mg/dL Corrected Calcium (8.5-10.1) mg/dL Total Bilirubin (0.2-1.0) mg/dL AST (15-37) U/L ALT (14-59) U/L Alkaline Phosphatase (46-116) U/L C-Reactive Protein (<=0.9) mg/dL Total Protein (6.4-8.2) g/dL Albumin (3.4-5.0) g/dL Globulin Albumin/Globulin Ratio Urine Color Dark yellow H (YELLOW) Urine Appearance Clear (CLEAR) Urine pH 6.5 (5.0-8.0) Ur Specific [place] 1.010 Urine Protein Negative (NEGATIVE) mg/dL Urine Glucose (UA) Negative (NEGATIVE) mg/dL Urine Ketones Negative (NEGATIVE) mg/dL Urine Occult Blood Negative (NEGATIVE) Urine Nitrite Negative (NEGATIVE) Urine Bilirubin Negative (NEGATIVE) Urine Urobilinogen 2.0 H (0.2) EU/dL Ur Leukocyte Esterase Negative (NEGATIVE) Influenza Type A RNA Positive H (NEGATIVE) RSV RNA (INAAT) Negative (NEGATIVE) Influenza Type B RNA Negative (NEGATIVE) SARS-CoV-2 RNA (DMITRI) Negative (NEGATIVE) Result Diagrams: 10/29/21 15:42 10/29/21 15:42 Sepsis Event Note - Focused Exam Vital Signs: Vital Signs Temp Temp Pulse Resp BP Pulse Ox 10/29/21 19:14 37.6 C 66 18 97/56 L 97 10/29/21 17:30 37.8 C 68 18 96/62 98 10/29/21 16:26 37.9 C 10/29/21 15:56 38.4 C H 10/29/21 15:30 38.4 C H 69 16 94/50 L 96 - Problem List (1) Pneumonia SNOMED Code(s): 412463751 ICD Code: J18.9 - PNEUMONIA, UNSPECIFIED ORGANISM Status: Acute Current Visit: Yes Qualifiers: Pneumonia type: due to unspecified organism (2) Influenza A SNOMED Code(s): 168821823 ICD Code: J10.1 - FLU DUE TO OTH IDENT INFLUENZA VIRUS W OTH RESP MANIFEST Status: Acute Current Visit: Yes (3) Transaminitis SNOMED Code(s): 644476043, 576147043 ICD Code: R74.01 - ELEVATION OF LEVELS OF LIVER TRANSAMINASE LEVELS Status: Acute Current Visit: Yes (4) Hyponatremia SNOMED Code(s): 85496599 ICD Code: E87.1 - HYPO-OSMOLALITY AND HYPONATREMIA Status: Acute Current Visit: Yes (5) Acne SNOMED Code(s): 78673771 ICD Code: L70.9 - ACNE, UNSPECIFIED Status: Chronic Current Visit: Yes (6) Anxiety SNOMED Code(s): 29985620 ICD Code: F41.9 - ANXIETY DISORDER, UNSPECIFIED Status: Chronic Current Visit: No Problem List Initiated/Reviewed/Updated: Yes Orders Last 24hrs: Active Orders 24 hr Category Date Time Status Patient Status [ADT] Routine ADT 10/29/21 19:57 Active Notify Provider Vital Signs [RC] ASDIRECTED Care 10/29/21 19:58 Active Oxygen Therapy [RC] PRN Care 10/29/21 19:57 Active RT Aerosol Therapy [RC] ASDIRECTED Care 10/29/21 18:56 Active Up With Assistance [RC] ASDIRECTED Care 10/29/21 19:57 Active VTE/DVT Education [RC] PER UNIT ROUTINE Care 10/29/21 19:57 Active Vital Signs [RC] Q4H Care 10/29/21 19:57 Active Regular Diet [DIET] Diet 10/29/21 Breakfast Ordered C-REACTIVE PROTEIN [CHEM] Stat Lab 10/30/21 05:11 Ordered CBC WITH AUTO DIFF [HEME] Stat Lab 10/30/21 05:11 Ordered COMPREHENSIVE METABOLIC PN,CMP [CHEM] Stat Lab 10/30/21 05:11 Ordered CULTURE BLOOD [BC] Stat Lab 10/29/21 19:04 Received CULTURE BLOOD [BC] Stat Lab 10/29/21 19:12 Received Acetaminophen [TylenoL] Med 10/29/21 19:57 Active 650 mg PO Q4H PRN Albuterol [Proventil Neb Soln] Med 10/29/21 18:56 Active 2.5 mg NEB Q4H PRN Azithromycin [Zithromax] 500 mg Med 10/29/21 18:30 Active Sodium Chloride 0.9% [Normal Saline AdvBag] 250 ml IV DAILY Enoxaparin [Lovenox] Med 10/30/21 08:00 Pending 40 mg SUBCUT DAILY Ibuprofen [Motrin] Med 10/29/21 19:57 Active 600 mg PO Q6H PRN Sodium Chloride 0.9% [Saline Flush] Med 10/29/21 16:21 Active 10 ml FLUSH ASDIRECTED PRN cefTRIAXone [Rocephin] Med 10/29/21 18:30 Active 1 gm IVPUSH DAILY Blood Culture x2 Reflex Set [OM.PC] Stat Oth 10/29/21 18:48 Ordered Peripheral IV Insertion Adult [OM.PC] Routine Oth 10/29/21 16:21 Ordered Resuscitation Status Routine Resus Stat 10/29/21 19:57 Ordered Medication Orders Acetaminophen (Acetaminophen 325 Mg Tab) 650 mg PO Q4H PRN PRN Reason: Pain (Mild 1-3)/fever Albuterol (Albuterol 0.083% 2.5 Mg/3 Ml Neb Soln) 2.5 mg NEB Q4H PRN PRN Reason: Shortness of Breath Ceftriaxone Sodium (Ceftriaxone 1 Gm Vial) 1 gm IVPUSH DAILY [facility] Last Admin: 10/29/21 19:10 Dose: 1 gm Documented by: ONEAL Enoxaparin Sodium (Enoxaparin 40 Mg/0.4 Ml Syringe) 40 mg SUBCUT DAILY [facility] Azithromycin 500 mg/ Sodium (Chloride) 250 mls @ 250 mls/hr IV DAILY [facility] Last Admin: 10/29/21 19:16 Dose: 250 mls/hr Documented by: ONEAL Ibuprofen (Ibuprofen 200 Mg Tab) 600 mg PO Q6H PRN PRN Reason: Pain (mild 1-3) Sodium Chloride (Sodium Chloride 0.9% 10 Ml Syringe) 10 ml FLUSH ASDIRECTED PRN PRN Reason: Keep Vein Open Assessment/Plan Comment:: 66 yo female admitted with pneumonia post-influenza. #1 CAP - Patient has bilateral but R>L pneumonia. - In light of her leukocytosis and elevated CRP, suspect bacterial pneumonia post-influenza A is the main issue at this point. - Already started on ceftriaxone and azithromycin in the ER. Will have low threshold to add vancomycin given post-influenza status. - Not requiring O2 at this time. Will add as indicated. - Blood cultures pending. - Repeat labs in the am. #2 Influenza A - Patient already completed tamiflu. Benefit of another course is questionable and it is possible the tamiflu contributed to her transaminitis. - Therefore, will observe off of this for now. #3 Transaminitis - Imaging unremarkable. - Suspect this is related to critical illness vs tamiflu. - Interventions as noted above. - Will monitor daily. #4 Hyponatremia - Likely due to poor oral intake over the past few days. - IV fluids given. - Recheck in am. #5 Acne #6 Anxiety - Continue home medications. Patient will be admitted to acute - ideally would stay to be covered at least 48 hours with IV antibiotics but we will monitor for improvement in light of the upcoming holiday. Code status is full - discussed on admission. Lovenox for VTE prophylaxis.
[2021-10-29] MEDS: Sodium Chloride 0.9% 1,000 ML IV SCH (22:20)
[2021-10-30 06:58] LABS: CHLORIDE,CL 96 mmol/L (98-107)
[2021-10-30 07:12] LABS: ANION GAP 11.5 mmol/L (5-15); SODIUM,NA 128 mmol/L (136-145)
[2021-10-30] MEDS: cefTRIAXone 1 GM Vial IVPUSH SCH (07:54)
[2021-10-30] MEDS: Sodium Chloride 0.9% 1,000 ML IV SCH (08:02)
[2021-10-30] MEDS: Spironolactone 25 MG Tab PO SCH (08:08)
[2021-10-30] MEDS: buPROPion 150 MG Tab.ER PO SCH (08:08)
[2021-10-30] MEDS: Azithromycin 500 MG in Sodium Chloride 0.9% 250 ML IV SCH (08:09)
--- NOTE | 2021-10-30 08:14 | PCM.PN ---
- General Info Date of Service: 10/30/21 Subjective Update: 66 yo female hospital day #2 admitted with pneumonia. Feels a little better this morning. Slept well overnight. Still very weak and tired. Appetite a little better and she is eating breakfast. Did have a fever this morning. Cough is about the same and remains non-productive. She denies any shortness of breath. No vomiting or diarrhea. - Review of Systems General: Reports: Fever, Weakness, Fatigue, Malaise, Chills HEENT: Reports: No Symptoms Pulmonary: Reports: Cough. Denies: Shortness of Breath, Sputum Cardiovascular: Reports: No Symptoms Gastrointestinal: Reports: No Symptoms Genitourinary: Reports: No Symptoms Musculoskeletal: Reports: No Symptoms Skin: Reports: No Symptoms Neurological: Reports: No Symptoms - Patient Data Vitals - Most Recent: Last Vital Signs Temp 36.9 C 10/30/21 06:29 Pulse 74 10/30/21 06:00 Resp 16 10/30/21 06:00 BP 101/59 L 10/30/21 06:00 Pulse Ox 90 L 10/30/21 06:00 Weight - Most Recent: 54.431 kg I&O - Last 24 Hours: Intake & Output 10/29/21 10/30/21 10/30/21 22:59 06:59 14:59 Intake Total 350 Output Total 250 600 Balance -250 -250 Lab Results Last 24 Hours: Laboratory Results - last 24 hr 10/29/21 10/29/21 10/29/21 Range/Units 15:42 15:42 15:42 WBC 17.9 H (4.0-10.0) x10^3/uL RBC 4.36 (4.00-5.50) x10^6/uL Hgb 13.0 (12.0-16.0) g/dL Hct 37.0 (33.0-47.0) % MCV 84.9 (78.0-93.0) fL MCH 29.8 (26.0-32.0) pg MCHC 35.1 (32.0-36.0) g/dL RDW Coeff of [place] 12.9 (10.0-15.0) % Plt Count 385 (130-400) x10^3/uL Immature Gran % (Auto) 1.20 H (0.00-0.43) % Neut % (Auto) 86.2 H (50.0-80.0) % Lymph % (Auto) 5.0 L (25.0-50.0) % [place] % (Auto) 7.5 (2.0-11.0) % Eos % (Auto) 0.0 (0.0-4.0) % Baso % (Auto) 0.1 L (0.2-1.2) % Neut # (Auto) 15.5 H (1.8-7.7) x10^3/uL Lymph # (Auto) 0.9 L (1.0-4.8) x10^3/uL [place] # (Auto) 1.3 H (0.0-0.8) x10^3/uL Eos # (Auto) 0.0 (0.0-0.5) x10^3/uL Baso # (Auto) 0.0 (0.0-0.2) x10^3/uL Immature Gran # (Auto) 0.22 H (0.00-0.07) x10^3/uL Add Manual Diff Neutrophils % (Manual) (50-80) % Band Neutrophils % (0-6) % Lymphocytes % (Manual) (25-50) % Monocytes % (Manual) (2-11) % Absolute Neutrophils (1.8-7.7) x10^3/uL Lymphocytes # (Manual) (1.0-4.8) x10^3/uL Monocytes # (Manual) (0.0-0.8) x10^3/uL Platelet Estimate Hypochromasia Anisocytosis Sodium 125 L* (136-145) mmol/L Potassium 3.4 L (3.5-5.1) mmol/L Chloride 90 L (98-107) mmol/L Carbon Dioxide 25 (21-32) mmol/L Anion Gap 13.4 (5-15) mmol/L BUN 15 (7-18) mg/dL Creatinine 0.6 (0.55-1.02) mg/dL Est Cr Clr Drug Dosing TNP Estimated GFR (MDRD) > 60 Glucose 104 H (70-99) mg/dL Lactic Acid 1.6 (0.4-2.0) mmol/L Calcium 9.0 (8.5-10.1) mg/dL Corrected Calcium 10.1 (8.5-10.1) mg/dL Total Bilirubin 2.0 H (0.2-1.0) mg/dL AST 94 H (15-37) U/L ALT 577 H (14-59) U/L Alkaline Phosphatase 381 H (46-116) U/L C-Reactive Protein 38.8 H (<=0.9) mg/dL Total Protein 6.5 (6.4-8.2) g/dL Albumin 2.6 L (3.4-5.0) g/dL Globulin 3.9 Albumin/Globulin Ratio 0.67 Urine Color (YELLOW) Urine Appearance (CLEAR) Urine pH (5.0-8.0) Ur Specific [place] Urine Protein (NEGATIVE) mg/dL Urine Glucose (UA) (NEGATIVE) mg/dL Urine Ketones (NEGATIVE) mg/dL Urine Occult Blood (NEGATIVE) Urine Nitrite (NEGATIVE) Urine Bilirubin (NEGATIVE) Urine Urobilinogen (0.2) EU/dL Ur Leukocyte Esterase (NEGATIVE) Influenza Type A RNA (NEGATIVE) RSV RNA (INAAT) (NEGATIVE) Influenza Type B RNA (NEGATIVE) SARS-CoV-2 RNA (DMITRI) (NEGATIVE) 10/29/21 10/29/21 10/30/21 Range/Units 15:53 18:16 06:09 WBC 20.6 H* (4.0-10.0) x10^3/uL RBC 3.90 L (4.00-5.50) x10^6/uL Hgb 11.7 L (12.0-16.0) g/dL Hct 32.9 L (33.0-47.0) % MCV 84.4 (78.0-93.0) fL MCH 30.0 (26.0-32.0) pg MCHC 35.6 (32.0-36.0) g/dL RDW Coeff of [place] 13.0 (10.0-15.0) % Plt Count 447 H (130-400) x10^3/uL Immature Gran % (Auto) (0.00-0.43) % Neut % (Auto) (50.0-80.0) % Lymph % (Auto) (25.0-50.0) % [place] % (Auto) (2.0-11.0) % Eos % (Auto) (0.0-4.0) % Baso % (Auto) (0.2-1.2) % Neut # (Auto) (1.8-7.7) x10^3/uL Lymph # (Auto) (1.0-4.8) x10^3/uL [place] # (Auto) (0.0-0.8) x10^3/uL Eos # (Auto) (0.0-0.5) x10^3/uL Baso # (Auto) (0.0-0.2) x10^3/uL Immature Gran # (Auto) (0.00-0.07) x10^3/uL Add Manual Diff Yes Neutrophils % (Manual) 78 (50-80) % Band Neutrophils % 9 H (0-6) % Lymphocytes % (Manual) 10 L (25-50) % Monocytes % (Manual) 3 (2-11) % Absolute Neutrophils 17.9 H (1.8-7.7) x10^3/uL Lymphocytes # (Manual) 2.1 (1.0-4.8) x10^3/uL Monocytes # (Manual) 0.6 (0.0-0.8) x10^3/uL Platelet Estimate Adequate Hypochromasia 1+ slight H Anisocytosis 1+ slight H Sodium (136-145) mmol/L Potassium (3.5-5.1) mmol/L Chloride (98-107) mmol/L Carbon Dioxide (21-32) mmol/L Anion Gap (5-15) mmol/L BUN (7-18) mg/dL Creatinine (0.55-1.02) mg/dL Est Cr Clr Drug Dosing Estimated GFR (MDRD) Glucose (70-99) mg/dL Lactic Acid (0.4-2.0) mmol/L Calcium (8.5-10.1) mg/dL Corrected Calcium (8.5-10.1) mg/dL Total Bilirubin (0.2-1.0) mg/dL AST (15-37) U/L ALT (14-59) U/L Alkaline Phosphatase (46-116) U/L C-Reactive Protein (<=0.9) mg/dL Total Protein (6.4-8.2) g/dL Albumin (3.4-5.0) g/dL Globulin Albumin/Globulin Ratio Urine Color Dark yellow H (YELLOW) Urine Appearance Clear (CLEAR) Urine pH 6.5 (5.0-8.0) Ur Specific [place] 1.010 Urine Protein Negative (NEGATIVE) mg/dL Urine Glucose (UA) Negative (NEGATIVE) mg/dL Urine Ketones Negative (NEGATIVE) mg/dL Urine Occult Blood Negative (NEGATIVE) Urine Nitrite Negative (NEGATIVE) Urine Bilirubin Negative (NEGATIVE) Urine Urobilinogen 2.0 H (0.2) EU/dL Ur Leukocyte Esterase Negative (NEGATIVE) Influenza Type A RNA Positive H (NEGATIVE) RSV RNA (INAAT) Negative (NEGATIVE) Influenza Type B RNA Negative (NEGATIVE) SARS-CoV-2 RNA (DMITRI) Negative (NEGATIVE) 10/30/21 Range/Units 06:09 WBC (4.0-10.0) x10^3/uL RBC (4.00-5.50) x10^6/uL Hgb (12.0-16.0) g/dL Hct (33.0-47.0) % MCV (78.0-93.0) fL MCH (26.0-32.0) pg MCHC (32.0-36.0) g/dL RDW Coeff of [place] (10.0-15.0) % Plt Count (130-400) x10^3/uL Immature Gran % (Auto) (0.00-0.43) % Neut % (Auto) (50.0-80.0) % Lymph % (Auto) (25.0-50.0) % [place] % (Auto) (2.0-11.0) % Eos % (Auto) (0.0-4.0) % Baso % (Auto) (0.2-1.2) % Neut # (Auto) (1.8-7.7) x10^3/uL Lymph # (Auto) (1.0-4.8) x10^3/uL [place] # (Auto) (0.0-0.8) x10^3/uL Eos # (Auto) (0.0-0.5) x10^3/uL Baso # (Auto) (0.0-0.2) x10^3/uL Immature Gran # (Auto) (0.00-0.07) x10^3/uL Add Manual Diff Neutrophils % (Manual) (50-80) % Band Neutrophils % (0-6) % Lymphocytes % (Manual) (25-50) % Monocytes % (Manual) (2-11) % Absolute Neutrophils (1.8-7.7) x10^3/uL Lymphocytes # (Manual) (1.0-4.8) x10^3/uL Monocytes # (Manual) (0.0-0.8) x10^3/uL Platelet Estimate Hypochromasia Anisocytosis Sodium 128 L* (136-145) mmol/L Potassium 3.5 (3.5-5.1) mmol/L Chloride 96 L (98-107) mmol/L Carbon Dioxide 24 (21-32) mmol/L Anion Gap 11.5 (5-15) mmol/L BUN 13 (7-18) mg/dL Creatinine 0.5 L (0.55-1.02) mg/dL Est Cr Clr Drug Dosing 97.67 Estimated GFR (MDRD) > 60 Glucose 97 (70-99) mg/dL Lactic Acid (0.4-2.0) mmol/L Calcium 8.0 L (8.5-10.1) mg/dL Corrected Calcium 9.6 (8.5-10.1) mg/dL Total Bilirubin 1.1 H (0.2-1.0) mg/dL AST 49 H (15-37) U/L ALT 373 H (14-59) U/L Alkaline Phosphatase 322 H (46-116) U/L C-Reactive Protein 26.8 H (<=0.9) mg/dL Total Protein 5.4 L (6.4-8.2) g/dL Albumin 2.0 L (3.4-5.0) g/dL Globulin 3.4 Albumin/Globulin Ratio 0.59 Urine Color (YELLOW) Urine Appearance (CLEAR) Urine pH (5.0-8.0) Ur Specific [place] Urine Protein (NEGATIVE) mg/dL Urine Glucose (UA) (NEGATIVE) mg/dL Urine Ketones (NEGATIVE) mg/dL Urine Occult Blood (NEGATIVE) Urine Nitrite (NEGATIVE) Urine Bilirubin (NEGATIVE) Urine Urobilinogen (0.2) EU/dL Ur Leukocyte Esterase (NEGATIVE) Influenza Type A RNA (NEGATIVE) RSV RNA (INAAT) (NEGATIVE) Influenza Type B RNA (NEGATIVE) SARS-CoV-2 RNA (DMITRI) (NEGATIVE) Med Orders - Current: Current Medications Acetaminophen (Acetaminophen 325 Mg Tab) 650 mg PO Q4H PRN PRN Reason: Pain (Mild 1-3)/fever Last Admin: 10/30/21 05:59 Dose: 650 mg Documented by: Albuterol (Albuterol 0.083% 2.5 Mg/3 Ml Neb Soln) 2.5 mg NEB Q4H PRN PRN Reason: Shortness of Breath Bupropion HCl (Bupropion 150 Mg Tab.Er) 150 mg PO DAILY [facility] Ceftriaxone Sodium (Ceftriaxone 1 Gm Vial) 1 gm IVPUSH DAILY [facility] Last Admin: 10/30/21 07:54 Dose: 1 gm Documented by: Enoxaparin Sodium (Enoxaparin 40 Mg/0.4 Ml Syringe) 40 mg SUBCUT DAILY@1200 [facility] Azithromycin 500 mg/ Sodium (Chloride) 250 mls @ 250 mls/hr IV DAILY [facility] Last Admin: 10/29/21 19:16 Dose: 250 mls/hr Documented by: Sodium Chloride (Normal Saline) 1,000 mls @ 150 mls/hr IV ASDIRECTED [facility] Last Admin: 10/30/21 08:02 Dose: 150 mls/hr Documented by: Vancomycin HCl 750 mg/ Sodium (Chloride) 250 mls @ 333 mls/hr IV Q12H [facility] Ibuprofen (Ibuprofen 200 Mg Tab) 600 mg PO Q6H PRN PRN Reason: Pain (mild 1-3) Sodium Chloride (Sodium Chloride 0.9% 10 Ml Syringe) 10 ml FLUSH ASDIRECTED PRN PRN Reason: Keep Vein Open Spironolactone (Spironolactone 25 Mg Tab) 100 mg PO DAILY [facility] Vancomycin HCl (Pharmacy To Dose - Vancomycin) 1 dose .XX ASDIRECTED [facility] Discontinued Medications Acetaminophen (Acetaminophen 500 Mg Tab) 1,000 mg PO ONETIME ONE Stop: 10/29/21 15:35 Last Admin: 10/29/21 15:56 Dose: 1,000 mg Documented by: Sodium Chloride (Normal Saline) 1,000 mls @ 999 mls/hr IV ONETIME ONE Stop: 10/29/21 17:21 Last Admin: 10/29/21 16:54 Dose: 999 mls/hr Documented by: Iopamidol (Iopamidol 612 Mg/Ml 100 Ml Bottle) 70 ml IVPUSH ONETIME ONE Stop: 10/29/21 17:48 Last Admin: 10/29/21 17:45 Dose: 70 ml Documented by: Oseltamivir Phosphate (Oseltamivir 75 Mg Cap) 75 mg PO BID [facility] Last Admin: 10/29/21 19:09 Dose: 75 mg Documented by: Sodium Chloride (Sodium Chloride 1 Gm Tab) 1 gm PO ONETIME ONE Stop: 10/29/21 16:24 Last Admin: 10/29/21 16:54 Dose: 1 gm Documented by: - Exam General: Alert, Oriented, Cooperative, No Acute Distress HEENT: Mucous Membr. Moist/Pinch Neck: Supple, Trachea Midline, No Thyromegaly. No: Lymphadenopathy Lungs: Normal Respiratory Effort, Crackles (both (R>L) lower lung real) Cardiovascular: Regular Rate, Regular Rhythm, No Murmurs GI/Abdominal Exam: Normal Bowel Sounds, Soft, Non-Tender, No Organomegaly, No Distention, No Mass Extremities: Normal Inspection, Normal Range of Motion, Non-Tender, No Pedal Edema, Normal Capillary Refill Peripheral Pulses: 2+: Radial (L), Radial (R) Skin: Warm, Dry, Intact Neurological: No New Focal Deficit - Patient Data Lab Results Last 24 hrs: Laboratory Results - last 24 hr 10/29/21 10/29/21 10/29/21 Range/Units 15:42 15:42 15:42 WBC 17.9 H (4.0-10.0) x10^3/uL RBC 4.36 (4.00-5.50) x10^6/uL Hgb 13.0 (12.0-16.0) g/dL Hct 37.0 (33.0-47.0) % MCV 84.9 (78.0-93.0) fL MCH 29.8 (26.0-32.0) pg MCHC 35.1 (32.0-36.0) g/dL RDW Coeff of [place] 12.9 (10.0-15.0) % Plt Count 385 (130-400) x10^3/uL Immature Gran % (Auto) 1.20 H (0.00-0.43) % Neut % (Auto) 86.2 H (50.0-80.0) % Lymph % (Auto) 5.0 L (25.0-50.0) % [place] % (Auto) 7.5 (2.0-11.0) % Eos % (Auto) 0.0 (0.0-4.0) % Baso % (Auto) 0.1 L (0.2-1.2) % Neut # (Auto) 15.5 H (1.8-7.7) x10^3/uL Lymph # (Auto) 0.9 L (1.0-4.8) x10^3/uL [place] # (Auto) 1.3 H (0.0-0.8) x10^3/uL Eos # (Auto) 0.0 (0.0-0.5) x10^3/uL Baso # (Auto) 0.0 (0.0-0.2) x10^3/uL Immature Gran # (Auto) 0.22 H (0.00-0.07) x10^3/uL Add Manual Diff Neutrophils % (Manual) (50-80) % Band Neutrophils % (0-6) % Lymphocytes % (Manual) (25-50) % Monocytes % (Manual) (2-11) % Absolute Neutrophils (1.8-7.7) x10^3/uL Lymphocytes # (Manual) (1.0-4.8) x10^3/uL Monocytes # (Manual) (0.0-0.8) x10^3/uL Platelet Estimate Hypochromasia Anisocytosis Sodium 125 L* (136-145) mmol/L Potassium 3.4 L (3.5-5.1) mmol/L Chloride 90 L (98-107) mmol/L Carbon Dioxide 25 (21-32) mmol/L Anion Gap 13.4 (5-15) mmol/L BUN 15 (7-18) mg/dL Creatinine 0.6 (0.55-1.02) mg/dL Est Cr Clr Drug Dosing TNP Estimated GFR (MDRD) > 60 Glucose 104 H (70-99) mg/dL Lactic Acid 1.6 (0.4-2.0) mmol/L Calcium 9.0 (8.5-10.1) mg/dL Corrected Calcium 10.1 (8.5-10.1) mg/dL Total Bilirubin 2.0 H (0.2-1.0) mg/dL AST 94 H (15-37) U/L ALT 577 H (14-59) U/L Alkaline Phosphatase 381 H (46-116) U/L C-Reactive Protein 38.8 H (<=0.9) mg/dL Total Protein 6.5 (6.4-8.2) g/dL Albumin 2.6 L (3.4-5.0) g/dL Globulin 3.9 Albumin/Globulin Ratio 0.67 Urine Color (YELLOW) Urine Appearance (CLEAR) Urine pH (5.0-8.0) Ur Specific [place] Urine Protein (NEGATIVE) mg/dL Urine Glucose (UA) (NEGATIVE) mg/dL Urine Ketones (NEGATIVE) mg/dL Urine Occult Blood (NEGATIVE) Urine Nitrite (NEGATIVE) Urine Bilirubin (NEGATIVE) Urine Urobilinogen (0.2) EU/dL Ur Leukocyte Esterase (NEGATIVE) Influenza Type A RNA (NEGATIVE) RSV RNA (INAAT) (NEGATIVE) Influenza Type B RNA (NEGATIVE) SARS-CoV-2 RNA (DMITRI) (NEGATIVE) 10/29/21 10/29/21 10/30/21 Range/Units 15:53 18:16 06:09 WBC 20.6 H* (4.0-10.0) x10^3/uL RBC 3.90 L (4.00-5.50) x10^6/uL Hgb 11.7 L (12.0-16.0) g/dL Hct 32.9 L (33.0-47.0) % MCV 84.4 (78.0-93.0) fL MCH 30.0 (26.0-32.0) pg MCHC 35.6 (32.0-36.0) g/dL RDW Coeff of [place] 13.0 (10.0-15.0) % Plt Count 447 H (130-400) x10^3/uL Immature Gran % (Auto) (0.00-0.43) % Neut % (Auto) (50.0-80.0) % Lymph % (Auto) (25.0-50.0) % [place] % (Auto) (2.0-11.0) % Eos % (Auto) (0.0-4.0) % Baso % (Auto) (0.2-1.2) % Neut # (Auto) (1.8-7.7) x10^3/uL Lymph # (Auto) (1.0-4.8) x10^3/uL [place] # (Auto) (0.0-0.8) x10^3/uL Eos # (Auto) (0.0-0.5) x10^3/uL Baso # (Auto) (0.0-0.2) x10^3/uL Immature Gran # (Auto) (0.00-0.07) x10^3/uL Add Manual Diff Yes Neutrophils % (Manual) 78 (50-80) % Band Neutrophils % 9 H (0-6) % Lymphocytes % (Manual) 10 L (25-50) % Monocytes % (Manual) 3 (2-11) % Absolute Neutrophils 17.9 H (1.8-7.7) x10^3/uL Lymphocytes # (Manual) 2.1 (1.0-4.8) x10^3/uL Monocytes # (Manual) 0.6 (0.0-0.8) x10^3/uL Platelet Estimate Adequate Hypochromasia 1+ slight H Anisocytosis 1+ slight H Sodium (136-145) mmol/L Potassium (3.5-5.1) mmol/L Chloride (98-107) mmol/L Carbon Dioxide (21-32) mmol/L Anion Gap (5-15) mmol/L BUN (7-18) mg/dL Creatinine (0.55-1.02) mg/dL Est Cr Clr Drug Dosing Estimated GFR (MDRD) Glucose (70-99) mg/dL Lactic Acid (0.4-2.0) mmol/L Calcium (8.5-10.1) mg/dL Corrected Calcium (8.5-10.1) mg/dL Total Bilirubin (0.2-1.0) mg/dL AST (15-37) U/L ALT (14-59) U/L Alkaline Phosphatase (46-116) U/L C-Reactive Protein (<=0.9) mg/dL Total Protein (6.4-8.2) g/dL Albumin (3.4-5.0) g/dL Globulin Albumin/Globulin Ratio Urine Color Dark yellow H (YELLOW) Urine Appearance Clear (CLEAR) Urine pH 6.5 (5.0-8.0) Ur Specific [place] 1.010 Urine Protein Negative (NEGATIVE) mg/dL Urine Glucose (UA) Negative (NEGATIVE) mg/dL Urine Ketones Negative (NEGATIVE) mg/dL Urine Occult Blood Negative (NEGATIVE) Urine Nitrite Negative (NEGATIVE) Urine Bilirubin Negative (NEGATIVE) Urine Urobilinogen 2.0 H (0.2) EU/dL Ur Leukocyte Esterase Negative (NEGATIVE) Influenza Type A RNA Positive H (NEGATIVE) RSV RNA (INAAT) Negative (NEGATIVE) Influenza Type B RNA Negative (NEGATIVE) SARS-CoV-2 RNA (DMITRI) Negative (NEGATIVE) 10/30/21 Range/Units 06:09 WBC (4.0-10.0) x10^3/uL RBC (4.00-5.50) x10^6/uL Hgb (12.0-16.0) g/dL Hct (33.0-47.0) % MCV (78.0-93.0) fL MCH (26.0-32.0) pg MCHC (32.0-36.0) g/dL RDW Coeff of [place] (10.0-15.0) % Plt Count (130-400) x10^3/uL Immature Gran % (Auto) (0.00-0.43) % Neut % (Auto) (50.0-80.0) % Lymph % (Auto) (25.0-50.0) % [place] % (Auto) (2.0-11.0) % Eos % (Auto) (0.0-4.0) % Baso % (Auto) (0.2-1.2) % Neut # (Auto) (1.8-7.7) x10^3/uL Lymph # (Auto) (1.0-4.8) x10^3/uL [place] # (Auto) (0.0-0.8) x10^3/uL Eos # (Auto) (0.0-0.5) x10^3/uL Baso # (Auto) (0.0-0.2) x10^3/uL Immature Gran # (Auto) (0.00-0.07) x10^3/uL Add Manual Diff Neutrophils % (Manual) (50-80) % Band Neutrophils % (0-6) % Lymphocytes % (Manual) (25-50) % Monocytes % (Manual) (2-11) % Absolute Neutrophils (1.8-7.7) x10^3/uL Lymphocytes # (Manual) (1.0-4.8) x10^3/uL Monocytes # (Manual) (0.0-0.8) x10^3/uL Platelet Estimate Hypochromasia Anisocytosis Sodium 128 L* (136-145) mmol/L Potassium 3.5 (3.5-5.1) mmol/L Chloride 96 L (98-107) mmol/L Carbon Dioxide 24 (21-32) mmol/L Anion Gap 11.5 (5-15) mmol/L BUN 13 (7-18) mg/dL Creatinine 0.5 L (0.55-1.02) mg/dL Est Cr Clr Drug Dosing 97.67 Estimated GFR (MDRD) > 60 Glucose 97 (70-99) mg/dL Lactic Acid (0.4-2.0) mmol/L Calcium 8.0 L (8.5-10.1) mg/dL Corrected Calcium 9.6 (8.5-10.1) mg/dL Total Bilirubin 1.1 H (0.2-1.0) mg/dL AST 49 H (15-37) U/L ALT 373 H (14-59) U/L Alkaline Phosphatase 322 H (46-116) U/L C-Reactive Protein 26.8 H (<=0.9) mg/dL Total Protein 5.4 L (6.4-8.2) g/dL Albumin 2.0 L (3.4-5.0) g/dL Globulin 3.4 Albumin/Globulin Ratio 0.59 Urine Color (YELLOW) Urine Appearance (CLEAR) Urine pH (5.0-8.0) Ur Specific [place] Urine Protein (NEGATIVE) mg/dL Urine Glucose (UA) (NEGATIVE) mg/dL Urine Ketones (NEGATIVE) mg/dL Urine Occult Blood (NEGATIVE) Urine Nitrite (NEGATIVE) Urine Bilirubin (NEGATIVE) Urine Urobilinogen (0.2) EU/dL Ur Leukocyte Esterase (NEGATIVE) Influenza Type A RNA (NEGATIVE) RSV RNA (INAAT) (NEGATIVE) Influenza Type B RNA (NEGATIVE) SARS-CoV-2 RNA (DMITRI) (NEGATIVE) Result Diagrams: 10/30/21 06:09 10/30/21 06:09 Sepsis Event Note - Evaluation Sepsis Screening Result: No Definite Risk - Focused Exam Vital Signs: Vital Signs Temp Temp Pulse Resp BP Pulse Ox 10/30/21 06:29 36.9 C 10/30/21 06:00 38.0 C 74 16 101/59 L 90 L 10/30/21 05:59 38.0 C 10/30/21 02:00 37.2 C 76 22 H 100/56 L 94 L 10/29/21 20:58 36.7 C 67 12 99/41 L 99 - Problem List & Annotations (1) Pneumonia SNOMED Code(s): 881539972 Code(s): J18.9 - PNEUMONIA, UNSPECIFIED ORGANISM Status: Acute Current Visit: Yes Qualifiers: Pneumonia type: due to unspecified organism (2) Sepsis SNOMED Code(s): 74045571 Code(s): A41.9 - SEPSIS, UNSPECIFIED ORGANISM Status: Acute Current Visit: Yes Qualifiers: Sepsis type: sepsis due to unspecified organism Sepsis acute organ dysfunction status: without acute organ dysfunction Qualified Code(s): A41.9 - Sepsis, unspecified organism (3) Influenza A SNOMED Code(s): 585565089 Code(s): J10.1 - FLU DUE TO OTH IDENT INFLUENZA VIRUS W OTH RESP MANIFEST Status: Acute Current Visit: Yes (4) Transaminitis SNOMED Code(s): 128648000, 458615998 Code(s): R74.01 - ELEVATION OF LEVELS OF LIVER TRANSAMINASE LEVELS Status: Acute Current Visit: Yes (5) Hyponatremia SNOMED Code(s): 43506563 Code(s): E87.1 - HYPO-OSMOLALITY AND HYPONATREMIA Status: Acute Current Visit: Yes (6) Acne SNOMED Code(s): 97766760 Code(s): L70.9 - ACNE, UNSPECIFIED Status: Chronic Current Visit: Yes (7) Anxiety SNOMED Code(s): 62592382 Code(s): F41.9 - ANXIETY DISORDER, UNSPECIFIED Status: Chronic Current Visit: No - Problem List Review Problem List Initiated/Reviewed/Updated: Yes - My Orders Last 24 Hours: My Active Orders 10/29/21 Breakfast Regular Diet [DIET] 10/29/21 19:57 Patient Status [ADT] Routine Oxygen Therapy [RC] .PRN Up With Assistance [RC] 08,20 VTE/DVT Education [RC] .PRN Vital Signs [RC] 06,10,14,18,22,02 Acetaminophen [TylenoL] 650 mg PO Q4H PRN Ibuprofen [Motrin] 600 mg PO Q6H PRN Resuscitation Status Routine 10/29/21 19:58 Notify Provider Vital Signs [RC] .PRN 10/29/21 21:45 Sodium Chloride 0.9% [Normal Saline] 1,000 ml IV ASDIRECTED 10/30/21 07:30 Pharmacy to Dose - Vancomycin 1 dose .XX ASDIRECTED 10/30/21 08:00 Spironolactone [Aldactone] 100 mg PO DAILY buPROPion [Wellbutrin XL] 150 mg PO DAILY 10/30/21 09:00 Vancomycin 750 mg Sodium Chloride 0.9% [Normal Saline AdvBag] 250 ml IV Q12H 10/30/21 12:00 Enoxaparin [Lovenox] 40 mg SUBCUT DAILY@1200 11/01/21 08:30 VANCOMYCIN TROUGH [CHEM] Timed - Assessment Assessment:: 66 yo female hospital day #2 admitted with post-influenza pneumonia. Now meeting sepsis criteria. Feeling a little better; labs a little worse this am. - Plan Plan:: #1 CAP #2 Sepsis, secondary to #1 - Patient has bilateral but R>L pneumonia. - In light of her leukocytosis and elevated CRP, suspect bacterial pneumonia post-influenza A is the main issue at this point. - Given increase in WBC and risk for MRSA in the setting of post-influenza, will add vancomycin. - Continue ceftriaxone and azithromycin as well. - Likely could be transitioned to augmentin and doxycycline for homegoing to complete her course. - Not requiring O2 at this time. Will add as indicated. - Blood cultures pending. - Repeat labs in the am. #3 Influenza A - Patient already completed tamiflu. Benefit of another course is questionable and it is possible the tamiflu contributed to her transaminitis. - Continue to observe off of this for now. #3 Transaminitis - Significantly improved today. - Imaging unremarkable. - Suspect this is related to critical illness vs tamiflu. - Interventions as noted above. - Will monitor daily. #4 Hyponatremia - Na improved from 125 to 128. - Likely due to poor oral intake over the past few days as well as critical lung illness. - IV fluids will be continued. - Recheck in am. #5 Acne #6 Anxiety - Continue home medications. Patient will remain on acute today - anticipate admission for another 48 hours at least. Code status is full - discussed on admission. Lovenox for VTE prophylaxis.
[2021-10-30] MEDS ORDERED: Vancomycin 750 MG SDV ONE (10:18)
[2021-10-30] MEDS: Enoxaparin 40 MG/0.4 ML Syringe SUBCUT SCH (12:07)
[2021-10-31] MEDS: Sodium Chloride 0.9% 1,000 ML IV SCH ×4 (00:31→15:41)
[2021-10-31] MEDS: Azithromycin 500 MG in Sodium Chloride 0.9% 250 ML IV SCH (07:27)
[2021-10-31] MEDS: cefTRIAXone 1 GM Vial IVPUSH SCH (07:27)
[2021-10-31] MEDS: Spironolactone 25 MG Tab PO SCH (07:37)
[2021-10-31] MEDS: buPROPion 150 MG Tab.ER PO SCH (07:39)
[2021-10-31 08:34] LABS: CHLORIDE,CL 101 mmol/L (98-107); SODIUM,NA 134 mmol/L (136-145)
[2021-10-31 08:35] LABS: ANION GAP 11.7 mmol/L (5-15)
--- NOTE | 2021-10-31 10:22 | PN ---
Progress Note for MONICA Camp RETTERA Date: 10/31/2021 Room #: [facility] SUBJECTIVE: The patient is feeling a little bit stronger. She is not having much cough. She is eager to get out of here. She has not been up much at all. The patient did have positive blood cultures, so she was started on vancomycin yesterday. She does have a regular diet. OBJECTIVE: Vital Signs: Her temperature is 36.6, pulse 60, blood pressure is 102/56, respiratory rate 16, saturations are 97%. Skin: [place]. Warm and dry. Heart: Regular rate and rhythm. Lungs: Have diminished breath sounds on bases. Abdomen: Soft. LABORATORY DATA: Her lab work today shows her white blood cell count improved greatly at 14.3, hemoglobin 11.4 with 526 platelets. Her segs 77, 6 bands. Her sodium is 134, which has greatly improved. Potassium is 3.7, creatinine 0.5. Her calcium was 10.2, AST has improved to 58 from 94, ALT 275 from 577 on admit. Albumin is 1.9. IMPRESSION: 1. Recent influenza A which has resolved. 2. Elevated liver function tests secondary to medications from Tamiflu. 3. Bacterial pneumonia. 4. Positive blood cultures. 5. Sepsis. 6. Transaminitis. 7. Hyponatremia, improved. 8. Chronic anxiety disorder. PLAN: We will slow down her IV rate today. We will repeat chest x-ray. She will be continued on vancomycin and she is also still on Rocephin as well as Zithromax. We will repeat a chest x-ray today. We will repeat lab work tomorrow. We will allow patient to be up and ambulate. GM10/31/2021 09:54:12 MODL: 10/31/2021 10:12:29 /[id number]
[2021-10-31] MEDS: Enoxaparin 40 MG/0.4 ML Syringe SUBCUT SCH (11:31)
--- NOTE | 2021-10-31 11:37 | CR ---
[id number] RAD/RAD Chest PA And Lateral EXAM: RAD Chest PA And Lateral CLINICAL DATA: PNEUMONIA COMPARISON: CORRELATION IS MADE WITH OCTOBER 29, 2021 FINDINGS: Bilateral infiltrates are present but decreased There are small bilateral effusions The cardiac silhouette is stable IMPRESSION: OVERALL IMPROVEMENT Rolando Lehman MD 10/31/21 [id number] Thank you for allowing us to participate in the care of your patient.
[2021-11-01] MEDS: Spironolactone 25 MG Tab PO SCH (07:27)
[2021-11-01] MEDS: Azithromycin 500 MG in Sodium Chloride 0.9% 250 ML IV SCH (07:27)
[2021-11-01] MEDS: buPROPion 150 MG Tab.ER PO SCH (07:28)
[2021-11-01] MEDS: cefTRIAXone 1 GM Vial IVPUSH SCH (07:28)
[2021-11-01 08:47] LABS: CHLORIDE,CL 99 mmol/L (98-107); SODIUM,NA 135 mmol/L (136-145)
[2021-11-01 08:48] LABS: ANION GAP 12.2 mmol/L (5-15)
[2021-11-01] MEDS: Potassium Chloride 10 MEQ Tab.ER PO SCH (10:29)
--- NOTE | 2021-11-01 10:52 | PN ---
Progress Note for MONICA Camp RETTERATH Date: 11/01/2021 Room #: VM.212 SUBJECTIVE: The patient is starting to feel stronger, which she is happy about. However, she did have some loose stools this morning, which is concerning for her. The patient is feeling a little bit down that she still has to be in the hospital. OBJECTIVE: Vital Signs: Her temperature is 37.1, pulse 61, blood pressure is 111/49, respiratory rate 14, saturations are 97. General: The patient's looks more alert. Heart: Regular rate and rhythm. Lungs: Clear to auscultation. Abdomen: Soft. Extremities: Lower extremities, no edema. LABORATORY DATA: Her labs shows that her white blood cell count is improved to 13.0, hemoglobin is 11.9, with 63 segs, 10 bands, 15 lymphocytes. Her sodium is 135, which is improved. Potassium has dropped to 3.2. Creatinine is 0.5. GFR greater than 60. Glucose 92. Her AST has increased to 118 today, ALT has increased to 308, alkaline phosphatase is increased to 330, albumin is 2.0. Vancomycin trough was obtained. IMPRESSION: 1. Septicemia, unclear etiology. 2. Elevated LFTs, suspect from influenza medication. However, she is off those. 3. Recent influenza A. 4. Bacterial pneumonia. 5. Positive blood cultures. 6. Transaminitis. 7. Hyponatremia, improved. 8. Hypokalemia. 9. Chronic airway disease. 10.Some mild anxiety disorder. PLAN: We will continue her IV rates right now. We will check for Clostridium difficile. She is currently on IV vancomycin, which would not cover for Clostridium difficile, and she is on Rocephin and Zithromax. We will repeat lab work tomorrow. To note, patient did have to relocate to a different room as the heat was not working in her current room, and we will repeat a chest x-ray on Wednesday on patient. GM11/01/2021 10:30:02 MODL: 11/01/2021 10:47:52 /[id number]
[2021-11-01] MEDS: Enoxaparin 40 MG/0.4 ML Syringe SUBCUT SCH (11:57)
[2021-11-01] MEDS: Sodium Chloride 0.9% 1,000 ML IV SCH (18:23)
[2021-11-02] MEDS: Azithromycin 500 MG in Sodium Chloride 0.9% 250 ML IV SCH (07:45)
[2021-11-02] MEDS: Potassium Chloride 10 MEQ Tab.ER PO SCH (07:52)
[2021-11-02] MEDS: buPROPion 150 MG Tab.ER PO SCH (07:52)
[2021-11-02] MEDS: Spironolactone 25 MG Tab PO SCH (07:52)
[2021-11-02] MEDS: cefTRIAXone 1 GM Vial IVPUSH SCH (07:53)
[2021-11-02 09:05] LABS: CHLORIDE,CL 103 mmol/L (98-107); SODIUM,NA 137 mmol/L (136-145)
[2021-11-02 09:09] LABS: ANION GAP 10.3 mmol/L (5-15)
--- NOTE | 2021-11-02 09:19 | PN ---
Progress Note for MONICA Camp RETTERATH Date: 11/02/2021 Room #: VM.212 SUBJECTIVE: The patient is extremely eager to be discharged home. She wants to get home because her family is here. She also does not care for the bed that is here. Her bowels have gotten already better. Her blood cultures did just come back right now for final report. The patient has been eating okay. OBJECTIVE: Vital Signs: Her temperature is 36.4, blood pressure is 101/56, respiratory rate 18, saturations are 97% on room air. General: She is looking much better. She is more perkier, sitting up in the chair. Heart: Regular rate and rhythm. Lungs: Some crackles on the right base. Abdomen: Soft. Laboratory Data: Her blood cultures show strep pneumonia on the one culture which has sensitivities to Rocephin, levofloxacin, Penicillin G, and vancomycin. IMPRESSION: 1. Streptococcus pneumoniae bacteremia. 2. Sepsis. 3. Pneumonia. 4. Elevated LFTs, most likely secondary to influenza medication. 5. Diarrhea, awaiting Clostridium difficile to come back negative. 6. Hypokalemia. 7. Hyponatremia. 8. Chronic anxiety disorder. PLAN: We will await the results for chest x-ray today as well as electrolytes. If the patient is insisting on going home, we could set her up with most likely Levaquin to put her on. We will maximize her vancomycin dosing by giving her a dose before leaving and she will be able to be on Levaquin starting tomorrow. GM11/02/2021 08:44:04 MODL: 11/02/2021 09:13:41 /[id number]
--- NOTE | 2021-11-02 10:46 | CR ---
[id number] RAD/RAD Chest PA And Lateral EXAM: RAD Chest PA And Lateral CLINICAL DATA: PNEUMONIA COMPARISON: RELATION IS MADE WITH OCTOBER 31, 2021 FINDINGS: The right upper lobe infiltrate is stable There is mild pleural reaction at both lung bases. IMPRESSION: NO SIGNIFICANT CHANGE SINCE LAST EXAM Rolando Lehman MD 11/02/21 0181 Thank you for allowing us to participate in the care of your patient.
[2021-11-02 10:50] VITALS: BP 107/57; PULSE 57
[2021-11-02] MEDS: Enoxaparin 40 MG/0.4 ML Syringe SUBCUT SCH (11:07)
[2021-11-03] MEDS ORDERED: Levofloxacin 500 MG Tab PO SCH (08:00)
--- NOTE | 2021-11-03 22:05 | DISCH ---
PRIMARY DIAGNOSES: 1. Streptococcal pneumonia bacteremia. 2. Sepsis. 3. Pneumonia, bilateral. 4. Transaminitis, possibly related to influenza medication. 5. Recent influenza A. 6. Diarrhea. 7. Hypokalemia. 8. Hyponatremia. 9. Chronic anxiety disorder. SUMMARY OF ADMIT HISTORY AND PHYSICAL: The patient is a 66-year-old female, who presented to the emergency room. She had not been feeling right for 2 weeks. She had come in vomiting. She had had an injection of Zofran. She was quite fatigued. She had not been eating. Her had tested positive for influenza A 2 weeks ago and she herself had also been treated for influenza A. Her vital signs on admission showed her temperature 37.6, pulse 66, respirations 18, blood pressure 97/56, sats 97. Her lab on admission showed her white blood cell count 17.9, hemoglobin 13.0. Sodium was 125, potassium 3.4, creatinine 0.6, GFR greater than 60, glucose 104, lactic acid 1.6, total bilirubin 2.0, AST 94, ALT 577, alkaline phosphatase 381, CRP 38.8, albumin 2.6. Urine was dark, specific gravity 1.010. She was positive for influenza A, negative for COVID. Her initial chest x-ray was read as having patchy pulmonary infiltrates bilaterally, right greater than left. Findings are likely infectious or inflammatory in nature and can be from an atypical pneumonia. She did undergo a CT scan of her abdomen and pelvis, which showed no acute findings otherwise, previous cholecystectomy, pneumobilia present, liver unremarkable, nonobstructing left nephrolithiasis, mild stone burden, colonic diverticula noted, but no diverticulitis present, fibroid uterus was noted, spondylosis was noted. CT of her chest was done also, which showed mixed-density parenchyma opacification and consolidation in both lungs, more prominent on the right, findings are consistent with pneumonia including COVID pneumonia. SUMMARY OF HOSPITAL COURSE: The patient was admitted to Acute Care. She was initially given Rocephin and Zithromax to cover for infections, given IV hydration. To note, the patient had a difficult time eating. Her sodium level did improve. It was noted that the patient then did develop positive blood cultures, gram-positive, so she was also started on vancomycin and she was left on 3 antibiotics. She did have some diarrhea and so a C difficile sample was obtained, but the result is still pending at discharge. The patient did continue to receive IV fluids. Temperature max was 37.1. Her blood pressure had run down to 84/43 and did respond to IV hydration. By discharge it was 107/57 off IV fluids. Her O2 saturation always maintained above 90% and did not require supplemental oxygen. She was 98% at the time of discharge. SUMMARY OF LABORATORY FINDINGS: Her white blood cell count did go up to 20.6, but was down to 9.4 by 11/02/2021. Her hemoglobin had stayed stable; after hydration, it was 11.6 on the day of discharge. Her sodium had been 125 at admission and had gone up to 137 on the day of discharge. Her potassium had dropped down to 3.2 and was up to 3.3 on the day of discharge. Her AST had maxed out on 11/01 at 118 and by 11/02, it was 71, possibly could have been related to Rocephin use as well. ALT had been 577 on admit and was 242 at the day of discharge. Alkaline phosphatase was 381 on admit and was down to 280 on day of discharge. CRP had been 38.8 on the day of admit and down to 5.4 on 11/02. The patient's albumin was noted to be low at 2.1 on day of discharge. A lipase was checked and it was 289 on 11/02. Procalcitonin had been checked on 11/02 and was 0.11. The patient had her vancomycin troughs monitored by Pharmacy. Because of eagerness for the patient to be discharged home with a family member who is a nurse practitioner, instead of the patient going off her vancomycin and trying a day of oral antibiotics, it was decided to send her home on oral antibiotics. Her blood culture became finalized on 11/02/2021 with sensitivities, which showed sensitivities to Rocephin, Levaquin, penicillins, and vancomycin. The patient was felt eager for discharge. MEDICATIONS: Her medications at the time of discharge are: Wellbutrin 150 mg daily; cranberry extract 1 capsule daily; vitamin C 500 mg 1 pill daily; spironolactone 50 mg tablet, she takes 2 pills daily; aspirin 81 mg daily; vitamin D3 1000 units daily; potassium chloride 10 mEq, she is to take 2 pills daily; and levofloxacin 500 mg 1 pill daily for 5 days was sent to pharmacy. The patient was told to follow up with her primary care, Dr. Peguero, in 1 week's time and if she starts to feel more ill, she is to return to be seen. The patient is code level 1 at the time of discharge. GM11/03/2021 16:22:29 MODL: 11/03/2021 22:00:12 /[id number]
--- NOTE | 2021-11-04 15:07 | DISCH ---
PRIMARY DIAGNOSIS: Sepsis. SECONDARY DIAGNOSES: 1. Streptococcal pneumonia bacteremia. 2. Transaminitis. 3. Possible drug reaction from Tamiflu causing elevated liver function tests. 4. Recent influenza A. 5. Pneumonia. 6. Hyponatremia. 7. Hypokalemia. 8. Chronic anxiety disorder. 9. Acne. SUMMARY OF ADMIT HISTORY AND PHYSICAL: The patient is a 66-year-old female who presented to the emergency department with not feeling well for the past 2 weeks. She has been vomiting, having body aches, cough, not feeling well. The patient's had influenza A 2 weeks ago. The patient had been vaccinated for influenza, but not COVID. When seen in the emergency department, her laboratory data showed her white blood cell count 17.9, hemoglobin 13 with normal platelets, 1.2 immature granulocytes, 86 segs, 5 lymphocytes. Sodium was 125, potassium 3.4, creatinine 0.6, GFR greater than 60, total bilirubin 2.0, AST 94, ALT 577, alkaline phosphatase 381, CRP was elevated, albumin 2.6. She was positive for influenza A, negative for COVID. Urine; saw dark urine, specific gravity 1.010, urobilinogen 2.0. SUMMARY OF HOSPITAL COURSE: The patient was admitted on 10/29/2021 until 11/02/2021. She received IV hydration. She was placed initially on Rocephin as well as Zithromax due to her elevated white blood cell count and chest x-ray showing right infilatrates. The patient had blood cultures obtained. She had received 1 dose of Tamiflu on 10/29/2021. The patient not certain how many doses of Tamiflu she has had. The patient had already completed a course of Tamiflu, so it was not repeated as that was a concern to cause elevated liver function tests. She also received antiemetics of Zofran. She was placed on Lovenox for DVT prophylaxis. The patient's blood cultures were positive showing gram- positive cocci, so vancomycin was also ordered on 10/30/2021. The patient's sodium was slow to improve, it was up to 128. She continued IV fluids. To note, her lab showed that her white blood cell count had maxed out at 20.6 on 10/30/2021. Her CRP had greatly improved to 26.8 by the next morning. The patient was left on the 3 antibiotics until sensitivities were reported on 11/02/2021. At that time, it was sensitive to Levaquin, ceftriaxone, penicillin, and vancomycin. Her laboratory data showed that her white blood cell count by 11/02/2021 was down to 9.4, hemoglobin was 11.6. The patient's potassium was noted to be low on 11/01/2021, so she was started on oral potassium. By 11/02/2021, her potassium was still 3.3. Her LFTs had improved. By 11/02/2021, her AST was 71. ALT had improved to 242, alkaline phosphatase had improved to 280, total bilirubin was not reported. Lipase was checked on 11/02/2021, it was 289. Procalcitonin was checked on 11/02/2021, it was 0.11. She had not had one done previously. Her CRP had improved to 5.4 on 11/02/2021. The patient's magnesium was 1.9 on 11/02/2021. The patient's IV fluids had been reduced down. By 11/02/2021, the patient was very eager for discharge home because family was present for the holidays. She was eating oral food okay. To note, she did have some loose stools on 11/01/2021, so a C. difficile specimen was obtained, but the results were not back yet. However, she had no further diarrhea after that. MEDICATIONS AT DISCHARGE: Wellbutrin XL 150 mg 1 pill daily, cranberry extract 1 pill daily, vitamin C 500 mg 1 pill daily, spironolactone 50 mg, she takes 2 aspirin 81 mg 1 pill daily, vitamin D 1000 units daily. Potassium new 20 mEq 1 pill daily, anticipate this to be a short-term medication. Levaquin 500 mg 1 pill daily to be started on 11/03/2021. PLAN: The patient is to follow up with Dr. Peguero in a weeks' time. The patient will take oral probiotics to help because of being on Levaquin. The patient will need to call the clinic to set up an appointment to be seen by Dr. Peguero in a weeks' time. To note, she will need to have monitoring of her potassium levels as well as her liver function enzymes. The patient is full code level at the time of discharge. Over 30 minutes was spent preparing discharge. GM11/02/2021 11:29:04 MODL: 11/02/2021 12:30:16 /[id number] YARIEL
== END 2021-11-02 13:05 | disposition home or self-care (01) | DRG 720 ==
LOC: VM.ED 15:28 → VM.MS 19:57
PROVIDERS: ADMIT Family Medicine; ATTEND Family Medicine
DX: A40.3 Sepsis due to Streptococcus pneumoniae (principal); J18.9 Pneumonia, unspecified organism; E87.1 Hypo-osmolality and hyponatremia; R19.7 Diarrhea, unspecified; E87.6 Hypokalemia; F41.9 Anxiety disorder, unspecified; J10.00 Influenza due to other identified influenza virus with unspecified type of pneumonia; Z20.822 Contact with and (suspected) exposure to COVID-19; K57.30 Diverticulosis of large intestine without perforation or abscess without bleeding; E78.00 Pure hypercholesterolemia, unspecified; I48.91 Unspecified atrial fibrillation; K21.9 Gastro-esophageal reflux disease without esophagitis; F43.20 Adjustment disorder, unspecified; E21.3 Hyperparathyroidism, unspecified; L70.9 Acne, unspecified; K44.9 Diaphragmatic hernia without obstruction or gangrene; K57.90 Diverticulosis of intestine, part unspecified, without perforation or abscess without bleeding; R74.01 Elevation of levels of liver transaminase levels; G89.29 Other chronic pain; M54.9 Dorsalgia, unspecified; M19.90 Unspecified osteoarthritis, unspecified site; Z79.82 Long term (current) use of aspirin; Z79.899 Other long term (current) drug therapy; Z90.49 Acquired absence of other specified parts of digestive tract; Z88.8 Allergy status to other drugs, medicaments and biological substances; Z90.89 Acquired absence of other organs; Z88.2 Allergy status to sulfonamides; Z88.5 Allergy status to narcotic agent; Z87.442 Personal history of urinary calculi
CPT/HCPCS: 0241U; 36415; 71046; 71250; 74177; 80053; 80202; 81003; 83605; 83690; 83735; 84145; 85025; 86140; 87040; 87181; 87184; 87186; 87493; 96365; 96375; 99285-25; A9270-GY; J0456; J0696; J1650; J3370; J7030; J7050; Q9967

== ENCOUNTER 2023-02-10 06:52 | Emergency (ER) | payer BC ==
[2023-02-10] MEDS ORDERED: Ondansetron 4 MG/2 ML SDV IVPUSH ONE ×2 (06:59→07:17)
[2023-02-10] MEDS ORDERED: Sodium Chloride 0.9% 10 ML Syringe FLUSH PRN (07:16)
[2023-02-10] MEDS ORDERED: Sodium Chloride 0.9% 1,000 ML IV SCH ×2 (07:30→08:00)
[2023-02-10 07:43] LABS: ANION GAP 15.2 mmol/L (5-15)
[2023-02-10] MEDS ORDERED: Prochlorperazine 10 MG/2 ML SDV IV ONE (07:56)
[2023-02-10 07:59] LABS: CORONAVIRUS COVID-19 NAA POSITIVE (NEGATIVE); RESPIRATORY SYNCYTIAL VIR NAA NEGATIVE (NEGATIVE)
[2023-02-10 13:43] VITALS: BP 122/64; PULSE 68
== END 2023-02-10 08:44 | disposition home or self-care (01) ==
LOC: SUPCPDRO 06:52 → VM.ED 06:52
DX: U07.1 COVID-19 (principal); R11.0 Nausea; E87.1 Hypo-osmolality and hyponatremia; I48.91 Unspecified atrial fibrillation; K21.9 Gastro-esophageal reflux disease without esophagitis; M19.90 Unspecified osteoarthritis, unspecified site; Z88.2 Allergy status to sulfonamides; Z88.5 Allergy status to narcotic agent; Z88.8 Allergy status to other drugs, medicaments and biological substances; Z79.82 Long term (current) use of aspirin; Z86.16 Personal history of COVID-19
CPT/HCPCS: 0241U; 36415; 80053; 85025; 96361; 96374; 96375; 99283-25; J0780; J2405; J7030